=== PATIENT | male | born 1930 | race Caucasian/White ===

== ENCOUNTER → 2016-08-10 | Outpatient (CLI) | payer MEDICARE, MEDICAID ==
[~2016-08-10] MED LIST: AVOD0.5C OR; BABY81CH OR; CALCTAB22 OR; DIOV160T5 OR; FISH1000 OR; GLUC1000 OR; HYDR25TA6 OR; ISOS30TA4 OR; KLOR10TA OR; MULTIVIT PO; SIMV20TA2 OR; SULF50TA OR; VIT D 2000 PO; VITA100T OR; VITA500T OR; cholestyramine PO
[2016-08-10 10:26] LABS: ALBUMIN/GLOBULIN RATIO 1.33 (1.00-1.93); ALKALINE PHOSPHATASE 67 U/L (45-117); ALT/SGPT 22 U/L (12-78); ANION GAP 7 MEQ/L (8-16); AST/SGOT 22 U/L (15-37); BILIRUBIN,TOTAL 0.7 MG/DL (0.2-1.0); BLOOD UREA NITROGEN 15 MG/DL (7-18); CALCIUM LEVEL 8.9 MG/DL (8.8-10.2); CARBON DIOXIDE LEVEL 33 MEQ/L (21-32); CHLORIDE LEVEL 102 MEQ/L (98-107); CREATININE FOR GFR 1.06 MG/DL (0.70-1.30); GLOMERULAR FILTRATION RATE > 60.0 (>35); GLUCOSE, FASTING 149 MG/DL (83-110); POTASSIUM SERUM 4.1 MEQ/L (3.5-5.1); SODIUM LEVEL 142 MEQ/L (136-145)
[2016-08-10 10:29] LABS: VITAMIN B12 LEVEL 1134 PG/ML (247-911)
== END ==
LOC: M LAB 09:30
PROVIDERS: ATTEND Nurse Practitioner Family
DX: E11.9 Type 2 diabetes mellitus without complications (principal); E55.9 Vitamin D deficiency, unspecified; D51.8 Other vitamin B12 deficiency anemias

== ENCOUNTER → 2016-11-21 | Outpatient (CLI) | payer MEDICARE, MEDICAID ==
[2016-11-21 07:29] LABS: ANION GAP 8 MEQ/L (8-16); BLOOD UREA NITROGEN 22 MG/DL (7-18); CARBON DIOXIDE LEVEL 32 MEQ/L (21-32); CHLORIDE LEVEL 100 MEQ/L (98-107); CREATININE FOR GFR 1.13 MG/DL (0.70-1.30); GLOMERULAR FILTRATION RATE > 60.0 (>35); GLUCOSE, FASTING 193 MG/DL (83-110); POTASSIUM SERUM 3.6 MEQ/L (3.5-5.1); SODIUM LEVEL 140 MEQ/L (136-145)
== END ==
LOC: M LAB 06:10
PROVIDERS: ATTEND Nurse Practitioner Family
DX: E11.9 Type 2 diabetes mellitus without complications (principal)

== ENCOUNTER → 2017-03-07 | Outpatient (CLI) | payer MEDICARE, MEDICAID ==
[2017-03-07 07:44] LABS: BASO % 0.6 % (0.0-1.0); EOS # 0.1 K/mm3 (0.0-0.50); EOS % 0.8 % (0.0-3.0); LYMPH # 1.9 K/mm3 (1.5-4.5); LYMPH % 25.2 % (24.0-44.0); MEAN CORPUSCULAR HEMOGLOBIN 32.7 pg (27.0-33.0); MEAN CORPUSCULAR HGB CONC 34.9 g/dl (32.0-36.5); MEAN CORPUSCULAR VOLUME 93.5 fl (80.0-96.0); MONO # 0.6 K/mm3 (0.0-0.8); MONO % 8.4 % (0.0-5.0); NEUTROPHILS # 4.3 K/mm3 (1.8-7.7); NEUTROPHILS % 62.9 % (36.0-66.0); RED CELL DISTRIBUTION WIDTH 13.3 % (11.5-14.5); WHITE BLOOD COUNT 6.8 K/mm3 (4.0-10.0)
[2017-03-07 08:32] LABS: ALBUMIN 4.1 GM/DL (3.2-5.2); ALBUMIN/GLOBULIN RATIO 1.41 (1.00-1.93); ALKALINE PHOSPHATASE 66 U/L (45-117); ALT/SGPT 26 U/L (12-78); ANION GAP 10 MEQ/L (8-16); AST/SGOT 23 U/L (15-37); BILIRUBIN,TOTAL 1.1 MG/DL (0.2-1.0); BLOOD UREA NITROGEN 24 MG/DL (7-18); CALCIUM LEVEL 9.2 MG/DL (8.8-10.2); CARBON DIOXIDE LEVEL 29 MEQ/L (21-32); CHLORIDE LEVEL 104 MEQ/L (98-107); CHOLESTEROL LEVEL 135 MG/DL (<200); CREATININE FOR GFR 1.08 MG/DL (0.70-1.30); GLOMERULAR FILTRATION RATE > 60.0 (>35); GLUCOSE, FASTING 207 MG/DL (83-110); SODIUM LEVEL 143 MEQ/L (136-145); TRIGLYCERIDES LEVEL 200 MG/DL (<150)
== END ==
LOC: M LAB 06:50
PROVIDERS: ATTEND Physician Assistant Medical
DX: E11.9 Type 2 diabetes mellitus without complications (principal)

== ENCOUNTER → 2017-05-08 | Outpatient (CLI) | payer MEDICARE, MEDICAID ==
[2017-05-08 06:54] LABS: BASO % 0.3 % (0.0-1.0); EOS # 0.1 10^3/uL (0.0-0.50); EOS % 0.6 % (0.0-3.0); IMMATURE GRANULOCYTE % 0.6 % (0-0); LYMPH # 2.9 10^3/uL (1.5-4.5); LYMPH % 31.7 % (24.0-44.0); MEAN CORPUSCULAR HEMOGLOBIN 32.4 pg (27.0-33.0); MEAN CORPUSCULAR HGB CONC 34.5 g/dl (32.0-36.5); MONO # 0.9 10^3/uL (0.0-0.8); MONO % 9.4 % (0.0-5.0); NEUTROPHILS # 5.2 10^3/uL (1.8-7.7); NEUTROPHILS % 57.4 % (36.0-66.0); PLATELET COUNT, AUTOMATED 147 10^3/uL (150-450); RED CELL DISTRIBUTION WIDTH 12.9 % (11.5-14.5); WHITE BLOOD COUNT 9.1 10^3/uL (4.0-10.0)
[2017-05-08 07:25] LABS: ALBUMIN 4.4 GM/DL (3.2-5.2); ALBUMIN/GLOBULIN RATIO 1.57 (1.00-1.93); ALKALINE PHOSPHATASE 68 U/L (45-117); ALT/SGPT 29 U/L (12-78); ANION GAP 7 MEQ/L (8-16); AST/SGOT 28 U/L (7-37); BILIRUBIN,TOTAL 1.3 MG/DL (0.2-1.0); BLOOD UREA NITROGEN 19 MG/DL (7-18); CARBON DIOXIDE LEVEL 32 MEQ/L (21-32); CHLORIDE LEVEL 101 MEQ/L (98-107); CHOLESTEROL LEVEL 122 MG/DL (<200); CREATININE FOR GFR 1.07 MG/DL (0.70-1.30); GLOMERULAR FILTRATION RATE > 60.0 (>35); GLUCOSE, FASTING 186 MG/DL (83-110); POTASSIUM SERUM 3.4 MEQ/L (3.5-5.1); SODIUM LEVEL 140 MEQ/L (136-145); TOTAL PROTEIN 7.2 GM/DL (6.4-8.2); TRIGLYCERIDES LEVEL 186 MG/DL (<150)
== END ==
LOC: M LAB 06:15
PROVIDERS: ATTEND Physician Assistant Medical
DX: E11.9 Type 2 diabetes mellitus without complications (principal); Z79.899 Other long term (current) drug therapy

== ENCOUNTER → 2017-06-19 | Outpatient (CLI) | payer MEDICARE, MEDICAID ==
--- NOTE | 2017-06-19 12:02 | REP ---
MR BRAIN WITHOUT CONTRAST: HISTORY: Dizziness. Areas of increased signal intensity on T2-weighted images are present in the periventricular and subcortical white matter. This represents small vessel ischemic disease. There is no intraparenchymal hemorrhage, infarct, mass or midline shift. The ventricular system and cortical sulci are dilated consistent with moderate volume loss. There is no extracerebral collection. Minimal mucosal thickening is present in the right mastoid air cells. The sinuses are clear. 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 There is minimal mass effect on the upper cervical spinal cord and lower medulla. IMPRESSION: 1. Small vessel ischemic disease. 2. Moderate volume loss. 3. Basilar invagination. Signed by Osei Wallis MD 06/19/2017 12:09 P
== END ==
LOC: M RAD 09:32
PROVIDERS: ATTEND Physician Assistant Medical
DX: R42 Dizziness and giddiness (principal); I67.82 Cerebral ischemia; G31.9 Degenerative disease of nervous system, unspecified

== ENCOUNTER → 2017-08-15 | Outpatient (REF) | payer MEDICARE, MEDICAID ==
[2017-08-15 12:47] LABS: BASO % 0.4 % (0.0-1.0); EOS % 0.5 % (0.0-3.0); HEMATOCRIT 42.9 % (42.0-52.0); HEMOGLOBIN 14.6 g/dl (14.0-18.0); IMMATURE GRANULOCYTE % 0.4 % (0-3.0); LYMPH # 2.3 10^3/uL (1.5-4.5); LYMPH % 30.5 % (24.0-44.0); MEAN CORPUSCULAR HEMOGLOBIN 30.6 pg (27.0-33.0); MEAN CORPUSCULAR VOLUME 89.9 fl (80.0-96.0); MONO # 0.7 10^3/uL (0.0-0.8); MONO % 9.7 % (0.0-5.0); NEUTROPHILS # 4.3 10^3/uL (1.8-7.7); NEUTROPHILS % 58.5 % (36.0-66.0); PLATELET COUNT, AUTOMATED 135 10^3/uL (150-450); RED BLOOD COUNT 4.77 10^6/uL (4.30-6.10); RED CELL DISTRIBUTION WIDTH 12.7 % (11.5-14.5); WHITE BLOOD COUNT 7.4 10^3/uL (4.0-10.0)
[2017-08-15 13:05] LABS: TOTAL 25(OH) VITAMIN D 32.3 NG/ML (30.0-100.0)
[2017-08-15 13:15] LABS: ESTIMATED AVERAGE GLUCOSE 151 MG/DL (60-110); HEMOGLOBIN A1c 6.9 %
[2017-08-15 13:16] LABS: ALBUMIN 4.5 GM/DL (3.2-5.2); ALKALINE PHOSPHATASE 61 U/L (45-117); ALT/SGPT 25 U/L (12-78); ANION GAP 8 MEQ/L (8-16); AST/SGOT 19 U/L (7-37); BILIRUBIN,TOTAL 0.9 MG/DL (0.2-1.0); BLOOD UREA NITROGEN 22 MG/DL (7-18); CALCIUM LEVEL 9.6 MG/DL (8.8-10.2); CARBON DIOXIDE LEVEL 32 MEQ/L (21-32); CHLORIDE LEVEL 101 MEQ/L (98-107); CHOLESTEROL LEVEL 118 MG/DL (<200); CHOLESTEROL RISK RATIO 2.145 (<5); CREATININE FOR GFR 1.05 MG/DL (0.70-1.30); GLOMERULAR FILTRATION RATE > 60.0 (>35); GLUCOSE, FASTING 167 MG/DL (70-100); HDL CHOLESTEROL 55 MG/DL (>40); LDL CHOLESTEROL 22.4 MG/DL (<100); NON-HDL-C 63 MG/DL; POTASSIUM SERUM 4.1 MEQ/L (3.5-5.1); SODIUM LEVEL 141 MEQ/L (136-145); TOTAL PROTEIN 7.5 GM/DL (6.4-8.2); TRIGLYCERIDES LEVEL 203 MG/DL (<150)
== END ==
LOC: M LAB REF 12:10
DX: I10 Essential (primary) hypertension (principal); E55.9 Vitamin D deficiency, unspecified; I48.91 Unspecified atrial fibrillation; D51.8 Other vitamin B12 deficiency anemias; Z79.899 Other long term (current) drug therapy
CPT/HCPCS: 80162

== ENCOUNTER → 2017-12-05 | Outpatient (REF) | payer MEDICARE, MEDICAID ==
[2017-12-05 13:02] LABS: MAU/CREAT RATIO 135.9 MCG/MG (0.0-30.0)
[2017-12-05 13:05] LABS: ESTIMATED AVERAGE GLUCOSE 166 MG/DL (60-110); HEMOGLOBIN A1c 7.4 %
== END ==
LOC: M LAB REF 11:40
DX: E11.9 Type 2 diabetes mellitus without complications (principal)
CPT/HCPCS: 83036

== ENCOUNTER → 2018-01-29 | Outpatient (REF) | payer MEDICARE, MEDICAID ==
[2018-01-29 14:02] LABS: ESTIMATED AVERAGE GLUCOSE 160 MG/DL (60-110); HEMOGLOBIN A1c 7.2 %
== END ==
LOC: M LAB REF 13:34
DX: E11.9 Type 2 diabetes mellitus without complications (principal)
CPT/HCPCS: 83036

== ENCOUNTER → 2018-05-01 | Outpatient (REF) | payer MEDICARE, MEDICAID ==
[2018-05-01 14:16] LABS: ALBUMIN 4.2 GM/DL (3.2-5.2); ALBUMIN/GLOBULIN RATIO 1.45 (1.00-1.93); ALKALINE PHOSPHATASE 65 U/L (45-117); ALT/SGPT 22 U/L (12-78); ANION GAP 10 MEQ/L (8-16); AST/SGOT 19 U/L (7-37); BILIRUBIN,TOTAL 0.8 MG/DL (0.2-1.0); BLOOD UREA NITROGEN 21 MG/DL (7-18); CALCIUM LEVEL 9.5 MG/DL (8.8-10.2); CARBON DIOXIDE LEVEL 29 MEQ/L (21-32); CHLORIDE LEVEL 99 MEQ/L (98-107); CREATININE FOR GFR 1.03 MG/DL (0.70-1.30); GLOMERULAR FILTRATION RATE > 60.0 (>35); GLUCOSE, FASTING 263 MG/DL (70-100); POTASSIUM SERUM 4.2 MEQ/L (3.5-5.1); SODIUM LEVEL 138 MEQ/L (136-145); TOTAL PROTEIN 7.1 GM/DL (6.4-8.2)
[2018-05-01 14:24] LABS: VITAMIN B12 LEVEL 378 PG/ML (247-911)
[2018-05-01 18:33] LABS: ESTIMATED AVERAGE GLUCOSE 171 MG/DL (60-110); HEMOGLOBIN A1c 7.6 %
== END ==
LOC: M LAB REF 11:53
DX: E11.9 Type 2 diabetes mellitus without complications (principal); D51.8 Other vitamin B12 deficiency anemias
CPT/HCPCS: 82607

== ENCOUNTER → 2018-08-12 | Outpatient (REF) | payer MEDICARE, MEDICAID ==
[2018-08-12 13:07] LABS: BASO % 0.5 % (0.0-1.0); EOS % 0.2 % (0.0-3.0); HEMATOCRIT 41.7 % (42.0-52.0); HEMOGLOBIN 14.3 g/dl (13.5-17.5); LYMPH # 1.6 10^3/uL (1.5-4.5); LYMPH % 19.3 % (24.0-44.0); MEAN CORPUSCULAR HEMOGLOBIN 31.6 pg (27.0-33.0); MEAN CORPUSCULAR HGB CONC 34.3 g/dl (32.0-36.5); MEAN CORPUSCULAR VOLUME 92.1 fl (80.0-96.0); MONO # 0.8 10^3/uL (0.0-0.8); MONO % 9.6 % (0.0-5.0); NEUTROPHILS # 5.7 10^3/uL (1.8-7.7); NEUTROPHILS % 69.7 % (36.0-66.0); PLATELET COUNT, AUTOMATED 134 10^3/uL (150-450); RED BLOOD COUNT 4.53 10^6/uL (4.30-6.10); WHITE BLOOD COUNT 8.1 10^3/uL (4.0-10.0)
[2018-08-12 13:46] LABS: ALBUMIN 4.1 GM/DL (3.2-5.2); ALT/SGPT 25 U/L (12-78); BILIRUBIN,TOTAL 0.7 MG/DL (0.2-1.0); BLOOD UREA NITROGEN 17 MG/DL (7-18); CALCIUM LEVEL 8.9 MG/DL (8.8-10.2); CARBON DIOXIDE LEVEL 26 MEQ/L (21-32); CHLORIDE LEVEL 100 MEQ/L (98-107); CREATININE FOR GFR 1.07 MG/DL (0.70-1.30); GLOMERULAR FILTRATION RATE > 60.0 (>35); GLUCOSE, FASTING 287 MG/DL (70-100); POTASSIUM SERUM 3.7 MEQ/L (3.5-5.1); SODIUM LEVEL 138 MEQ/L (136-145); TOTAL PROTEIN 7.2 GM/DL (6.4-8.2)
[2018-08-12 14:02] LABS: HEMOGLOBIN A1c 8.8 %
== END ==
LOC: M LAB REF 12:05
PROVIDERS: ATTEND Nurse Practitioner Family
DX: I10 Essential (primary) hypertension (principal); E11.9 Type 2 diabetes mellitus without complications

== ENCOUNTER → 2018-11-24 | Outpatient (REF) | payer MEDICARE, MEDICAID ==
[2018-11-24 20:02] LABS: BASO % 0.5 % (0.0-1.0); EOS % 0.3 % (0.0-3.0); HEMOGLOBIN 12.3 g/dl (13.5-17.5); LYMPH # 0.9 10^3/uL (1.5-4.5); LYMPH % 10.9 % (24.0-44.0); MEAN CORPUSCULAR HEMOGLOBIN 30.7 pg (27.0-33.0); MEAN CORPUSCULAR HGB CONC 33.2 g/dl (32.0-36.5); MEAN CORPUSCULAR VOLUME 92.3 fl (80.0-96.0); MONO # 0.8 10^3/uL (0.0-0.8); MONO % 9.4 % (0.0-5.0); NEUTROPHILS # 6.2 10^3/uL (1.8-7.7); NEUTROPHILS % 77.9 % (36.0-66.0); PLATELET COUNT, AUTOMATED 159 10^3/uL (150-450); RED BLOOD COUNT 4.01 10^6/uL (4.30-6.10)
[2018-11-24 20:25] LABS: ALBUMIN 3.6 GM/DL (3.2-5.2); ALT/SGPT 25 U/L (12-78); BILIRUBIN,TOTAL 0.6 MG/DL (0.2-1.0); BLOOD UREA NITROGEN 15 MG/DL (7-18); CALCIUM LEVEL 8.4 MG/DL (8.8-10.2); CARBON DIOXIDE LEVEL 28 MEQ/L (21-32); CHLORIDE LEVEL 99 MEQ/L (98-107); CHOLESTEROL LEVEL 125 MG/DL (<200); CHOLESTEROL RISK RATIO 2.659 (<5); GLOMERULAR FILTRATION RATE > 60.0 (>35); GLUCOSE, FASTING 252 MG/DL (70-100); HDL CHOLESTEROL 47 MG/DL (>40); LDL CHOLESTEROL 37 MG/DL (<100); NON-HDL-C 78 MG/DL; SODIUM LEVEL 139 MEQ/L (136-145); TOTAL PROTEIN 6.8 GM/DL (6.4-8.2); TRIGLYCERIDES LEVEL 207 MG/DL (<150)
[2018-11-24 20:30] LABS: HEMOGLOBIN A1c 7.5 %
== END ==
LOC: M LAB REF 19:08
PROVIDERS: ATTEND Nurse Practitioner Family
DX: R07.89 Other chest pain (principal); Z13.9 Encounter for screening, unspecified; E11.9 Type 2 diabetes mellitus without complications

== ENCOUNTER 2018-12-01 04:20 | Inpatient (IN) | payer MEDICARE, MEDICAID ==
[2018-12-01] VITALS (18 sets, daily range): BP systolic 95–195; BP diastolic 60–117; O2SAT 95
[~2018-12-01] VITALS: Ht 165.1 cm; Wt 68.7 kg
[2018-12-01] MEDS ORDERED: METOPROLOL 5 MG/5 ML VIAL As Ordered ONE ×2 (04:28→04:36)
[2018-12-01] MEDS ORDERED: DIGOXIN INJ 0.5 MG/2 ML AMP (J1160) As Ordered ONE (04:29)
[2018-12-01 04:41] LABS: VENOUS HCO3 16.9 MEQ/L (23.0-27.0); VENOUS PARTIAL PRESSURE O2 30.2 mmHg (30.0-50.0); VENOUS PH 7.192 UNITS (7.330-7.430); VENOUS STANDARD HCO3 14.8 MEQ/L; VENOUS TOTAL CO2 18.3 MEQ/L (24.0-28.0)
[2018-12-01] MEDS ORDERED: FUROSEMIDE 100 MG/10 ML VIAL (J1940) IV ONE (04:45)
[2018-12-01 04:55] LABS: BASO % 0.3 % (0.0-1.0); HEMATOCRIT 42.6 % (42.0-52.0); HEMOGLOBIN 13.6 g/dl (13.5-17.5); LYMPH % 16.5 % (24.0-44.0); MEAN CORPUSCULAR HEMOGLOBIN 30.9 pg (27.0-33.0); MEAN CORPUSCULAR HGB CONC 31.9 g/dl (32.0-36.5); MEAN CORPUSCULAR VOLUME 96.8 fl (80.0-96.0); MONO % 7.9 % (0.0-5.0); NEUTROPHILS # 9.1 10^3/uL (1.8-7.7); NEUTROPHILS % 74.6 % (36.0-66.0); PLATELET COUNT, AUTOMATED 292 10^3/uL (150-450); WHITE BLOOD COUNT 12.2 10^3/uL (4.0-10.0)
[2018-12-01 04:58] LABS: INR 1.37; PROTHROMBIN TIME 17.1 SECONDS (12.1-14.4)
[2018-12-01] MEDS ORDERED: JANU100T PO (04:58)
[2018-12-01] MEDS ORDERED: SULF1TAB30 PO (04:58)
[2018-12-01] MEDS ORDERED: DIGO0.12 PO (04:58)
[2018-12-01] MEDS ORDERED: LOPE1CAP5 PO (04:58)
[2018-12-01] MEDS ORDERED: DILT1CAP46 PO (04:58)
[2018-12-01] MEDS ORDERED: FINA5TAB2 PO (04:58)
[2018-12-01] MEDS ORDERED: PROAAER10 INH (04:58)
[2018-12-01] MEDS ORDERED: SIMV20TA2 PO (04:58)
[2018-12-01] MEDS ORDERED: BREO1INH INH (04:58)
[2018-12-01] MEDS ORDERED: METF10004 PO (04:58)
[2018-12-01] MEDS ORDERED: LISI40TA PO (04:58)
[2018-12-01] MEDS ORDERED: ELIQ5TAB PO (04:58)
[2018-12-01] MEDS ORDERED: POTA20TA6 PO (04:58)
[2018-12-01] MEDS ORDERED: INDA125TA PO (04:58)
[2018-12-01 05:00] LABS: ALBUMIN 3.8 GM/DL (3.2-5.2); BILIRUBIN,DIRECT 0.3 MG/DL (0.0-0.2); CK-MB VALUE MASS 4.6 NG/ML (<3.6); CREATININE FOR GFR 1.53 MG/DL (0.70-1.30); MB/CK RELATIVE INDEX 3.74 (< OR =4); POTASSIUM SERUM 4.1 MEQ/L (3.5-5.1); TOTAL PROTEIN 7.3 GM/DL (6.4-8.2); TROPONIN I 0.59 NG/ML (< 0.10)
[2018-12-01] MEDS ORDERED: PATIENT COMMENT (05:00)
--- NOTE | 2018-12-01 05:24 | HPEPDOC ---
[facility] Medical History & Physical Date of Admission Dec 01, 2018 Date of Service: Dec 01, 2018 History and Physical CHIEF COMPLAINT: SOB HISTORY OF PRESENT ILLNESS: Patient is an 88-year-old male with past medical history of ?CHF, Afib on Eliquis, HTN, Crohn's disease, HLD, BPH, DM presented to the ER with complaints of worsening SOB. Stated symptoms started about a week ago and has been getting worse and also noticed that his legs are more swollen since yesterday. He denies any cough, chest pain, fever, chills or any other symptoms apart from dyspnea on exertion. Noted to be hypoxic in ER requiring NRB mask for O2 support. Also was in Afib w/ RVR on presentation that had now resolved. 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 PAST MEDICAL HISTORY: Refer to [facility] PAST SURGICAL HISTORY: Right colectomy with terminal ileum resection in Appendectomy Cholecystectomy SOCIAL HISTORY: Denies tobacco, alcohol or illicit drug use. FAMILY HISTORY: None reported ALLERGIES: Please see below. REVIEW OF SYSTEMS: 10 point review of system negative except as stated in [facility] HOME MEDICATIONS: Please see below. PHYSICAL EXAMINATION: General: Mild respiratory distress, speak in complete sentences but very difficult to comprehend. Eyes: Normal sclera, EOMI, JOSE LUIS HENT: Atraumatic, neck supple, moist mucous membranes Cardiovascular: Normal rate. No murmurs appreciated. Pulmonary: Decrease breath sounds b/l, more on the R. mild bi basilar crackles. GI: Soft, nontender, nondistended Skin: Warm and dry Neuro: CN grossly intact. No focal deficits. Strengths equal b/l. Psych: oriented x 3 LABORATORY DATA: See below. IMAGING: CXR- b/l congestion worse on R. according to my read. F/u official report. MICROBIOLOGY: Please see below. ASSESSMENT AND PLAN: 1. Suspected CHF? - No documented ECHO noted in the past, although patient does report CHF and follows with 2 electronics instructor. - Obtain ECHO. - c/w Diuresis. Daily weights. I/O. - O2 support for hypoxia. - Clinically improved after lasix and oxygen support. 2. Lactic acidosis - No clear evidence of infection. No symptoms of PNA. - Likely 2/2 hypoperfusion from poor cardiac function. - f/u blood cultures. - Start Abx if patient becomes febrile or show signs of infection otherwise. 3. HTN - Resume home meds. 4. Crohn's disease 5. HLD - resume home meds 6. Afib - Currently rate controlled. - resume home medication. On Eliquis 5BID, would consider reducing dose given advance age. 7. Elevated troponin - Likely demand. patient has no chest pain. - Can trend. DVT ppx: Eliquis Vital Signs Vital Signs Date Time Temp Pulse Resp B/P (MAP) Pulse Ox O2 Delivery O2 Flow Rate FiO2 12/01/18 05:18 98.5 108 44 131/73 (92) 95 Non-Rebreather 15.0 Laboratory Data Labs 24H Laboratory Tests 2 12/01/18 04:28: Immature Granulocyte % (Auto) 0.7, White Blood Count 12.2H, Red Blood Count 4.40, Hemoglobin 13.6, Hematocrit 42.6, Mean Corpuscular Volume 96.8H, Mean Corpuscular Hemoglobin 30.9, Mean Corpuscular Hemoglobin Concent 31.9L, Red Cell Distribution Width 14.0, Platelet Count 292, Neutrophils (%) (Auto) 74.6H, Lymphocytes (%) (Auto) 16.5L, Monocytes (%) (Auto) 7.9H, Eosinophils (%) (Auto) 0.0, Basophils (%) (Auto) 0.3, Neutrophils # (Auto) 9.1H, Lymphocytes # (Auto) 2.0, Monocytes # (Auto) 1.0H, Eosinophils # (Auto) 0.0, Basophils # (Auto) 0.0, Nucleated Red Blood Cells % (auto) 0.0, Prothrombin Time 17.1H, Prothromb Time International Ratio 1.37, Blood Gas Bicarbonate Standard 14.8, Venous Blood pH 7.192L, Venous Blood Partial Pressure CO2 45.0, Venous Blood Partial Pressure O2 30.2, Venous Blood Total Carbon Dioxide 18.3L, Venous Blood HCO3 16.9L, Venous Blood Oxygen Saturation 39.0L, Venous Blood Base Excess -11.0L, Anion Gap 17H, Glomerular Filtration Rate 46.0, Lactic Acid Level 9.4*H, Calcium Level 9.0, Aspartate Amino Transf (AST/SGOT) 32, Alanine Aminotransferase (ALT/SGPT) 27, Alkaline Phosphatase 63, Total Bilirubin 1.0, Direct Bilirubin 0.3H, Total Creatine Kinase 123, Creatine Kinase MB 4.6H, Creatine Kinase MB Relative Index 3.74, Troponin I 0.59H, DB-Zol-D-Type Natriuretic Peptide 5883H, Total Protein 7.3, Albumin 3.8, Albumin/Globulin Ratio 1.09, Lipase 88 CBC/BMP Laboratory Tests 12/01/18 04:28 Red Blood Count 4.40, Mean Corpuscular Volume 96.8 H, Mean Corpuscular Hemoglobin 30.9, Mean Corpuscular Hemoglobin Concent 31.9 L, Red Cell Distribution Width 14.0, Neutrophils (%) (Auto) 74.6 H, Lymphocytes (%) (Auto) 16.5 L, Monocytes (%) (Auto) 7.9 H, Eosinophils (%) (Auto) 0.0, Basophils (%) (Auto) 0.3, Neutrophils # (Auto) 9.1 H, Lymphocytes # (Auto) 2.0, Monocytes # (Auto) 1.0 H, Eosinophils # (Auto) 0.0, Basophils # (Auto) 0.0 Microbiology Microbiology 12/01/18 Blood Culture, Received Pending 12/01/18 Blood Culture, Received Pending Home Medications Scheduled Apixaban (Eliquis) 5 Mg Tablet, 5 MG PO BID Digoxin (Digoxin) 125 Mcg Tablet, 125 MCG PO DAILY Diltiazem Hcl (Diltiazem 24Hr ER) 360 Mg Cap.er.24h, 360 MG PO DAILY Finasteride (Finasteride) 5 Mg Tablet, 5 MG PO DAILY Fluticasone/Vilanterol (Breo Ellipta 100-25 Mcg INH) 1 Each Blst.w.dev, 1 PUFF INH DAILY Indapamide (Indapamide) 1.25 Mg Tablet, 1.25 MG PO DAILY Lisinopril (Lisinopril) 40 Mg Tablet, 40 MG PO DAILY Loperamide HCl (Loperamide) 2 Mg Capsule, 2 MG PO BID Metformin HCl (Metformin HCl) 1,000 Mg Tablet, 1,000 MG PO BID Potassium Chloride (Potassium Chloride) 20 Meq Tab.er.prt, 20 MEQ PO DAILY Simvastatin (Simvastatin) 20 Mg Tablet, 20 MG PO QHS Sitagliptin Phosphate (Januvia) 100 Mg Tablet, 100 MG PO DAILY Sulfasalazine (Sulfasalazine) 500 Mg Tablet, 500 MG PO QID Scheduled PRN Albuterol Sulfate (Proair Hfa) 8.5 Gm Hfa.aer.ad, 2 PUFF INH Q4H PRN for SOB/WHEEZING Miscellaneous Medications [Patient Comment] PRELIMINARY MED LIST OBTAINED FROM EXT. MED HISTORY. WILL DISCUSS WITH PT WHEN BREATHING IMPROVES Allergies Coded Allergies: No Known Allergies (Verified , 03/05/10) A-FIB/CHADSVASC A-FIB History Current/History of A-Fib/PAF?: Yes Current PO Anticoag Therapy: Yes LYNNE ANGELA MD Dec 01, 2018 05:24
[2018-12-01] MEDS ORDERED: METOPROLOL 5 MG/5 ML VIAL IV STA ×3 (05:30)
[2018-12-01] MEDS ORDERED: DIGOXIN INJ 0.5 MG/2 ML AMP (J1160) IV STA (05:30)
[2018-12-01] MEDS ORDERED: ACETAMINOPHEN TAB 650MG DOSE (2X325MG) PO PRN (05:45)
[2018-12-01] MEDS ORDERED: VITAD1000T PO (06:15)
[2018-12-01] MEDS ORDERED: CALC500T38 PO (06:15)
[2018-12-01] MEDS ORDERED: MULT-40 PO (06:15)
[2018-12-01] MEDS ORDERED: GLUCAGON FOR INJ 1 MG VIAL (J1610) SC PRN (08:15)
[2018-12-01] MEDS ORDERED: DEXTROSE 50% 50 ML SYRINGE IV PRN (08:15)
[2018-12-01] MEDS ORDERED: GLUCOSE 4 GM CHEW TABLET PO PRN (08:15)
--- NOTE | 2018-12-01 08:34 | IPNPDOC ---
Text Note Date of Service The patient was seen on 12/01/18. NOTE [id number] critical care time S: called to floor because patient in respiratory distress. He was admitted 3-4 hours ago with CHF, elevated troponin. He states no CP, +RIOS, +SOB,+orthpnea and edema- worsening over 4-5 days. He was [id number] IV lasix in ED with 200cc urine output (declines bella). Neice present. patient is a DNR/DNI. he is present on ventimask. O: Vitals as below ABG/labs reviewed General: severe respiratory distress, intercostal and accessory abdomen muscles to breath HEENT:+JVD Heart - irreg/irreg - rate controlled Lung - diminished breathsounds, rales scattered Ext 2+ pitting edema Random BS 410 Current Medications Acetaminophen (Tylenol Tab) 650 mg Q4H PRN PO PAIN OR FEVER; Start 12/01/18 at 05:45 Apixaban (Eliquis) 2.5 mg BID PO ; Start 12/01/18 at 21:00 Digoxin (Lanoxin) 0.0625 mg DAILY PO ; Start 12/02/18 at 09:00 Digoxin (Lanoxin) 0.25 mg STAT STAT IV Last administered on 12/01/18at 04:35; Start 12/01/18 at 05:30; Stop 12/01/18 at 05:32; Status DC Diltiazem HCl (Cardizem Cd) 360 mg DAILY PO ; Start 12/02/18 at 09:00 Finasteride (Proscar) 5 mg DAILY PO ; Start 12/02/18 at 09:00 Furosemide (LASIX injection) 60 mg Q8H IV ; Start 12/01/18 at 12:00; Stop 12/01/18 at 12:00; Status DC Furosemide 250 mg/ Dextrose 250 ml @ 7.33 mls/hr Q24H IV ; Start 12/01/18 at 08:15; Status UNV Glucagon (Glucagon) 1 mg ASDIRECTED PRN SC SEE LABEL COMMENTS; Start 12/01/18 at 08:15 Glucose (Glucose) 16 GM ASDIRECTED PRN PO SEE LABEL COMMENTS; Start 12/01/18 at 08:15 Home Med (Med Rec Complete!) ASDIRECTED XX ; Start 12/01/18 at 06:30; Stop 12/01/18 at 06:30; Status DC Indapamide (Lozol) 1.25 mg DAILY PO ; Start 12/02/18 at 09:00 Insulin Human Lispro (HumaLOG INSULIN) SEE PROTOCOL TABLE AC SC ; Start 12/01/18 at 07:30 Insulin Human Lispro (HumaLOG INSULIN) SEE PROTOCOL TABLE QHS SC ; Start 12/01/18 at 21:00 Lisinopril (Prinivil) 40 mg DAILY PO ; Start 12/02/18 at 09:00 Metoprolol Tartrate (Lopressor) 2.5 mg STAT STAT IV Last administered on 12/01/18at 05:18; Start 12/01/18 at 05:30; Stop 12/01/18 at 05:33; Status DC Metoprolol Tartrate (Lopressor) 5 mg STAT STAT IV Last administered on 12/01/18at 04:30; Start 12/01/18 at 05:30; Stop 12/01/18 at 05:32; Status DC Metoprolol Tartrate (Lopressor) 5 mg STAT STAT IV Last administered on 12/01/18at 04:36; Start 12/01/18 at 05:30; Stop 12/01/18 at 05:32; Status DC Potassium Chloride (Micro-K Extencaps) 20 meq DAILY PO ; Start 12/02/18 at 09:00 Simvastatin (Zocor) 20 mg QHS PO ; Start 12/01/18 at 21:00 Sulfasalazine (Azulfidine Entabs) 500 mg QID PO ; Start 12/01/18 at 13:00 A/P: 88 yo diabetic male with Acute hypoxic respiratory failure due to CHF, lactic acidosis, BRANDEE, elevated troponin (demand ischemia vs NSTEMI) and rate controlled Afib. Bipap (05/29), lasix drip (IV bumex not available), check potassium at 1000, ECHO PENDING, cardiology consulted. electrolyte replacement. SSI repeat ABG in 1 hour. Lasix drip is in D5 and may need additional insulin drip or high dose sliding scale. Hold metformen. Lactic acidosis may also be from metformen, renal disease and CHF. consider nephrology consult Critical care time 30 minutes VS,Fishbone, I+O VS, Fishbone, I+O Laboratory Tests 12/01/18 04:28 Red Blood Count 4.40, Mean Corpuscular Volume 96.8 H, Mean Corpuscular Hemoglobin 30.9, Mean Corpuscular Hemoglobin Concent 31.9 L, Red Cell Distribution Width 14.0, Neutrophils (%) (Auto) 74.6 H, Lymphocytes (%) (Auto) 16.5 L, Monocytes (%) (Auto) 7.9 H, Eosinophils (%) (Auto) 0.0, Basophils (%) (Auto) 0.3, Neutrophils # (Auto) 9.1 H, Lymphocytes # (Auto) 2.0, Monocytes # (Auto) 1.0 H, Eosinophils # (Auto) 0.0, Basophils # (Auto) 0.0 Vital Signs Date Time Temp Pulse Resp B/P (MAP) Pulse Ox O2 Delivery O2 Flow Rate FiO2 12/01/18 06:43 96.4 101 26 138/66 (90) 97 50 12/01/18 06:10 Venturi Mask 15.0 DAYRON MARQUES DO Dec 01, 2018 08:34
[2018-12-01] MEDS: HumaLOG INSULIN (NovoLOG) PER UNIT SC SCH ×4 (08:49→20:54)
[2018-12-01] MEDS ORDERED: FUROSEMIDE injection 250 MG in D5W 225 ML IV SCH (09:00)
[2018-12-01] MEDS ORDERED: MORPHINE 4 MG/ML 1ML VIAL/SYRINGE (J2270) IV ONE (09:00)
[2018-12-01 09:41] LABS: ABG BASE EXCESS -1.9 (-2.0-2.0); ABG HCO3 20.6 MEQ/L (22.0-26.0); ABG O2 SATURATION 96.6 % (95.0-99.0); ABG PARTIAL PRESSURE CO2 28.6 mmHg (35.0-45.0); ABG PARTIAL PRESSURE O2 101.7 mmHg (75.0-100.0); ABG STANDARD HCO3 22.9 MEQ/L (22.0-26.0); ABG TOTAL CO2 21.5 MEQ/L (23.0-31.0); ABG pH (ARTERIAL) 7.475 UNITS (7.350-7.450)
[2018-12-01 10:41] LABS: CALCIUM LEVEL 8.7 MG/DL (8.8-10.2); CREATININE FOR GFR 1.49 MG/DL (0.70-1.30); GLOMERULAR FILTRATION RATE 47.4 (>35); POTASSIUM SERUM 3.4 MEQ/L (3.5-5.1); TROPONIN I 1.08 NG/ML (< 0.10)
[2018-12-01] MEDS ORDERED: FUROSEMIDE 100 MG/10 ML VIAL (J1940) IV SCH (12:00)
[2018-12-01 12:17] LABS: MAGNESIUM LEVEL 1.5 MG/DL (1.8-2.4)
[2018-12-01] MEDS: KCL 10MEQ/100ML SWI (KRUN) 10 MEQ in APPROPRIATE DILUENT 1 EA IV SCH ×6 (12:22→18:11)
[2018-12-01] MEDS: sulfaSALAzine 500 MG TABEC PO SCH ×3 (12:22→20:54)
[2018-12-01] MEDS ORDERED: MAG SULF 1GM/100ML (MAG RUN) 1 GM in APPROPRIATE DILUENT 1 EA IV ONE (14:00)
[2018-12-01] MEDS ORDERED: MORPHINE 4 MG/ML 1ML VIAL/SYRINGE (J2270) IV PRN (14:30)
--- NOTE | 2018-12-01 19:31 | ECHO ---
DATE OF PROCEDURE: 12/01/2018 REFERRING PHYSICIAN: Dr. Reji Martinez INDICATION: Congestive heart failure. HEIGHT: 165 cm WEIGHT: 73 kg DIMENSIONS: IVS: 0.8 LV: 5.7 LVPW: 0.9 LA: 4.2 Aorta: 3.2 IVC: 2.2 Left atrial volume index: 29 mL per meter square. FINDINGS: The study is of acceptable technical quality. Patient is in atrial fibrillation with rapid ventricular response, fluctuating between 105 and 150 beats per minute (bpm). Left ventricle is mildly dilated. There is extensive wall motion abnormality involving whole septum, apex and most of the anterior wall. These segments appear essentially akinetic. The remaining segments are hypokinetic. Overall estimated left ventricular ejection fraction (LVEF) about 20-25%. The right ventricle does not appear grossly enlarged. There is severe biatrial enlargement, reported left atrial volume index and is in my opinion inaccurate. Aortic valve is sclerotic. It has three cusps and normal mobility. Mitral, tricuspid, and pulmonic valves appear normal. No pericardial effusion is noted. There is left pleural effusion. Inferior vena cava is dilated, and there is only partial collapse with respiration indicative of high central venous pressure. Aortic root is normal. Aortic arch and abdominal aorta were not well seen. Doppler evaluation reveals no significant aortic stenosis and trace insufficiency. There is approximately moderate mitral and tricuspid insufficiency. Calculated pulmonary artery pressure is at minimum in high 50s corresponding to moderately severe pulmonary hypertension. Pulmonic valve is functionally competent. Evaluation of diastolic function is inconclusive due to underlying atrial fibrillation. CONCLUSIONS: 1. Study is of acceptable technical quality. 2. Mildly dilated left ventricle with segmental wall motion abnormalities as noted above, superimposed global hypokinesis and overall estimated LVEF 20-25%. This is in the setting of atrial fibrillation with rapid ventricular response. 3. Right ventricle does not appear grossly dilated. 4. Severe biatrial enlargement. 5. High central venous pressure and at least moderate to severe pulmonary hypertension. COMMENT: Subacute bacterial endocarditis (SBE) prophylaxis is not recommended. Study is consistent with acutely exacerbated systolic congestive heart failure and likely underlying ischemic cardiomyopathy.
[2018-12-01 19:38] LABS: TROPONIN I 1.67 NG/ML (< 0.10)
[2018-12-01] MEDS: ATORVASTATIN 20 MG TAB PO SCH (20:54)
[2018-12-01 20:59] LABS: MAGNESIUM LEVEL 1.5 MG/DL (1.8-2.4)
[2018-12-01] MEDS ORDERED: SIMVASTATIN 20 MG TAB PO SCH (21:00)
[2018-12-01] MEDS ORDERED: APIXABAN 2.5 MG TAB (ELIQUIS) PO SCH (21:00)
[2018-12-01] MEDS ORDERED: ASPIRIN 325 MG TAB PO ONE (21:00)
[2018-12-01 21:13] LABS: CALCIUM LEVEL 8.7 MG/DL (8.8-10.2); CREATININE FOR GFR 1.4 MG/DL (0.70-1.30); GLOMERULAR FILTRATION RATE 50.9 (>35); POTASSIUM SERUM 3.6 MEQ/L (3.5-5.1)
--- NOTE | 2018-12-01 21:36 | CR ---
DATE OF CONSULTATION: 12/01/2018 REFERRING PHYSICIAN: Dr. Gutierrez INDICATION: Congestive heart failure, elevated troponin. HISTORY OF PRESENT ILLNESS: Mr. Hawthorne is an 88-year-old man who presented to [facility] by ambulance in 3d artist hours because of orthopnea and severe dyspnea. He tells me that he was in his usual state of health until about a week ago at which point he started developing progressive dyspnea but then since approximately last 1 or 2 days, the dyspnea progressed severely to the point that he was absolutely unable to breathe. He was brought to emergency room and found to be in atrial fibrillation with rapid ventricular response. There was evidence for florid congestive heart failure based on physical examination and chest x-ray. He was treated essentially with diuretics. He received initially 100 mg of furosemide IV and then was started on furosemide drip. He was put on continuous positive airway pressure (CPAP). He was given digoxin, total 0.75 mg IV that led to fairly substantial improvement in his respiratory status. When I saw him in the evening hours, he was telling me that he was feeling much improved even though still short of breath. He reports that he has had poorly described chest discomfort on and off in the last day or two. At his baseline, it is not completely clear what kind of cardiac history he already had. He was followed by myself, but the last time I saw him was in 2008. 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 PAST MEDICAL HISTORY: 1. Chronic atrial fibrillation. 2. Hypertension. 3. Crohn's disease. 4. BPH. 5. Diabetes. 6. He does not carry a definite history of coronary artery disease, but he informed me that apparently I was recommending 10 years ago that he gets a cardiac catheterization. It looks like it was never done. 7. Surgical history is positive for right hemicolectomy, appendectomy, and cholecystectomy. FAMILY HISTORY: No longer relevant but positive for coronary artery disease in distant relatives. SOCIAL HISTORY: The patient lives alone. He does not drink alcohol. He does not smoke. He is fully self-sufficient at his baseline. OUTPATIENT MEDICATIONS: Eliquis 5 mg twice a day, digoxin 0.125 mg a day, diltiazem 360 mg daily extended release, finasteride 5 mg a day, indapamide 1.5 mg a day, lisinopril 40 mg a day, metformin 1 gram twice a day, multivitamin, potassium chloride, simvastatin 20 mg a day, Januvia 100 mg a day and sulfasalazine 500 mg daily. REVIEW OF SYSTEMS: This is somewhat limited because the patient is rather a circumferential historian, but he denies any recent fever, chills, nausea, vomiting. No diarrhea. No recent bleeding problems. He does not recall having peripheral edema lately. He denies any chest discomfort until last maybe couple of days. The rest of review of system is negative. PHYSICAL EXAMINATION: Mr. Hawthorne is an elderly man who appears approximately his age. He is sitting in intensive care unit (ICU) bed. During my exam, he was alert, oriented, and appropriate. Vital signs: Blood pressure 113/60 and typically higher than that, heart rate around 90-120 beats per minute. Afebrile. Jugular venous pressure (JVP) did not look grossly elevated, possibly 2 cm above clavicle. Lungs: Somewhat diminished breath sounds bilaterally. I did not appreciate any wheezing or crackles, by physical exam, there are bilateral pleural effusions. Heart: Exam reveals irregular tachycardia. I did not appreciate any distinct gallop. There is a murmur best heard in the axilla about 2/6 intensity, holosystolic. Abdomen is soft without tenderness or rebound tenderness. There is mild peripheral edema. Peripheral pulses are poorly palpable. Neurologically, he is grossly intact. LABORATORY DATA: CBC: WBC count 12.2, hemoglobin 13.6, hematocrit is 42.6, and platelet count was 292,000. Basic metabolic panel at 0953 hours reveals sodium 138, potassium 3.4, BUN 20, creatinine 1.5 and glucose 329. Lactic acid was initially 9.4 and has been decreasing since; the last one at 1554 hours was 3.8. Magnesium was 1.5. Normal liver function test. Admission Troponin I was 0.59; that has raised to 1.71 at 1554 hours and the last one at 7 o'clock was 1.67. His admission CK was 123 and CK-MB 4.6, albumin is 3.8, INR 1.37 and ABGs at 0930 hours revealed pCO2 28 and pO2 101. Chest x-ray is consistent with congestive heart failure and cardiomegaly. ECG reveals atrial fibrillation with rapid ventricular response, possible recent septal wall myocardial infarction and nonspecific ST-T abnormalities. ASSESSMENT/PLAN: Mr. Hawthorne is an 88-year-old man who has chronic atrial fibrillation and presents with acute dyspnea consistent with acute congestive heart failure. He also had poorly defined chest discomfort on and off over the last few days. ECG is suspicious for recent septal wall myocardial infarction, and he has mild troponin elevation. He is DO NOT INTUBATE (DNI), DO NOT RESUSCITATE (DNR). At this point, there are several issues. As far as the atrial fibrillation is concerned, he is still not well rate-controlled. Because he takes digoxin chronically, and he received fairly significant amount on top of his chronic use, I do not think that giving additional digoxin for rate control is advisable. I will also discontinue Cardizem because his echocardiogram that I interpreted just a few minutes ago reveals severe left ventricular systolic dysfunction. I will give him an order for carvedilol 6.25 mg every 6 hours. Hopefully this will be sufficient to adequately control his rate. I will obtain digoxin level tomorrow to see whether we have any potential for additional digoxin use. He has been chronically anticoagulated with Eliquis, and this continues to be administered. Tomorrow morning will decide about further management. If he should be a candidate for coronary intervention, then will discontinue Eliquis and will cover him with heparin. The second problem is elevated troponin and left ventricular (LV) dysfunction. It is clear-cut that he suffered non-ST elevation myocardial infarction (non-STEMI). The timing is somewhat questionable. The degree of LV dysfunction by echo certainly seems very out of proportion to the current event, and I suspect that he had baseline coronary artery disease and baseline LV systolic dysfunction. I will adjust the medications as noted above. I am going to discontinue his Cardizem and replace it with carvedilol. I am going to temporarily discontinue lisinopril and indapamide until his situation stabilizes. If needs to be for blood pressure control, we can use vasodilators like IV nitroglycerin, but at this point it does not seem to be necessary. I will give him aspirin on top of his Eliquis. I am reluctant to give him Plavix on account of already having a history of Crohn's disease and him being on Eliquis. High dose potent statin will be administered in the form of atorvastatin. Further management will have to be decided later on. Certainly the patient would be probably best served by coronary angiography, but in the setting of an acute heart failure and underlying renal dysfunction, there is a very high potential for contrast- induced nephropathy. It is also questionable whether the patient is a candidate for any more invasive measures like bypass surgery. This will have to be addressed on daily basis. I will continue following with the patient with you. He is certainly critically ill, and his prognosis is guarded at best.
[2018-12-02] VITALS (9 sets, daily range): BP systolic 111–150; BP diastolic 58–73
[2018-12-02] MEDS: CARVedilol 6.25 MG TAB PO SCH ×4 (00:35→17:23)
[2018-12-02 04:56] LABS: BASO % 0.2 % (0.0-1.0); EOS % 0.3 % (0.0-3.0); HEMATOCRIT 38.5 % (42.0-52.0); HEMOGLOBIN 12.9 g/dl (13.5-17.5); LYMPH # 1.4 10^3/uL (1.5-4.5); MEAN CORPUSCULAR HEMOGLOBIN 30.6 pg (27.0-33.0); MEAN CORPUSCULAR HGB CONC 33.5 g/dl (32.0-36.5); MEAN CORPUSCULAR VOLUME 91.4 fl (80.0-96.0); MONO # 0.9 10^3/uL (0.0-0.8); MONO % 8.5 % (0.0-5.0); NEUTROPHILS # 8.2 10^3/uL (1.8-7.7); NEUTROPHILS % 77.2 % (36.0-66.0); PLATELET COUNT, AUTOMATED 195 10^3/uL (150-450); RED BLOOD COUNT 4.21 10^6/uL (4.30-6.10); WHITE BLOOD COUNT 10.6 10^3/uL (4.0-10.0)
[2018-12-02 05:36] LABS: ALBUMIN 3.5 GM/DL (3.2-5.2); ALT/SGPT 32 U/L (12-78); BILIRUBIN,TOTAL 0.9 MG/DL (0.2-1.0); BLOOD UREA NITROGEN 20 MG/DL (7-18); CALCIUM LEVEL 8.6 MG/DL (8.8-10.2); CARBON DIOXIDE LEVEL 31 MEQ/L (21-32); CHLORIDE LEVEL 98 MEQ/L (98-107); CREATININE FOR GFR 1.13 MG/DL (0.70-1.30); GLOMERULAR FILTRATION RATE > 60.0 (>35); GLUCOSE, FASTING 194 MG/DL (70-100); MAGNESIUM LEVEL 1.4 MG/DL (1.8-2.4); NT-PRO BNP 6362 PG/ML (<450); POTASSIUM SERUM 3.2 MEQ/L (3.5-5.1); SODIUM LEVEL 139 MEQ/L (136-145); TOTAL PROTEIN 6.5 GM/DL (6.4-8.2); TROPONIN I 1.28 NG/ML (< 0.10)
[2018-12-02] MEDS ORDERED: POTASSIUM CHLORIDE 10 MEQ SR TABLET PO ONE (06:15)
[2018-12-02] MEDS: MAG SULF 1GM/100ML (MAG RUN) 1 GM in APPROPRIATE DILUENT 1 EA IV SCH ×2 (06:18→07:36)
[2018-12-02] MEDS: HumaLOG INSULIN (NovoLOG) PER UNIT SC SCH ×4 (07:36→20:25)
--- NOTE | 2018-12-02 07:43 | ECGEPIP ---
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
--- NOTE | 2018-12-02 08:20 | IPN ---
DATE: 12/02/2018 Mr. Hawthorne had a relatively good night. He tells me that he has not slept very much, but did not have any paroxysmal nocturnal dyspnea (PND) or orthopnea. He was able to stay without C-PAP all night. He also denies any recurrence of chest discomfort. Vital signs this morning, blood pressure 124/73, heart rate has been in 80s and 90s, he is atrial fibrillation. He had a few episodes of nonsustained ventricular tachycardia (VT) on telemetry, but not more than 4 beats in a row. He is afebrile. Saturation 95% on 3 liters of oxygen. Fluid balance yesterday was about on 1000 mL negative and he is already 1300 negative this morning. Weight is documented 69.7 kg. He is alert, oriented and appropriate. His jugular venous pulse (JVP) was better. I still can see the edge above clavicle in a sitting position. Lungs are reasonably clear. I do not appreciate any wheezing or crackles, much better air movement than yesterday, I still suspect somewhat diminished as he probably has small pleural effusions. Heart Exam: Irregularly irregular rhythm. No gallop or rub. There is a murmur best heard in the axilla about 2/6 intensity holosystolic. Abdomen is soft without tenderness. I do not appreciate any peripheral edema and his peripheral pulses are palpable even though not of good quality. Neurologically he is intact. Laboratory-con[facility], basic metabolic panel with sodium 139, potassium 3.2, BUN 20, creatinine 1.3, GFR more than 60, glucose 194. Magnesium 1.4. Liver function tests are essentially normal. Troponin I is down to 1.28. NT-proBNP is 6300. Digoxin level was 1.1. ASSESSMENT/PLAN: Mr. Hawthorne is an 88-year-old man who has no prior history of coronary artery disease who presented with atrial fibrillation with rapid ventricular response and florid pulmonary edema. He also ruled in for a NSTEMI with ECG indicative of possibly recent septal myocardial infarction and echocardiogram revealing extensive apical wall motion abnormality and overall severely reduced left ventricular systolic function. The patient is currently DO NOT INTUBATE (DNI), DO NOT RESUSCITATE (DNR), and I had a discussion with him about his wishes. He wants to have the most aggressive treatment possible and today I am a lot more optimistic because there has been improvement of renal function and his mental status certainly is intact. As far as the management of acute coronary syndrome is concerned, I will stop apixaban and will start him on Lovenox as of tonight. Will give him on top of aspirin also Plavix while monitoring his blood count. He is on high-dose atorvastatin. He is on beta-blockers and digoxin for rate control. I will put a small dose of lisinopril back to his regimen for his vasodilator properties and for his LV systolic dysfunction. I will contact interventional cardiology in [place] with tentative plans for transfer. I suspect that he most likely will be transferred tomorrow.
[2018-12-02] MEDS ORDERED: diltiaZEM **CD** 180 MG CAP PO SCH (09:00)
[2018-12-02] MEDS ORDERED: POTASSIUM CHLORIDE 10 MEQ SR TABLET PO SCH ×2 (09:00)
[2018-12-02] MEDS ORDERED: LISINOPRIL 40 MG TAB PO SCH (09:00)
[2018-12-02] MEDS ORDERED: INDAPAMIDE 1.25MG TABLET PO SCH (09:00)
[2018-12-02] MEDS ORDERED: DIGOXIN 0.0625MG PER 1/2TABLET PO SCH (09:00)
[2018-12-02] MEDS: ENOXAPARIN 60 MG/0.6 ML SYR (J1650) SC SCH ×2 (09:06→20:20)
[2018-12-02] MEDS: ASPIRIN 325 MG TAB PO SCH (09:06)
[2018-12-02] MEDS: PANTOPRAZOLE 40MG TAB (PROTONIX) PO SCH (09:07)
[2018-12-02] MEDS: sulfaSALAzine 500 MG TABEC PO SCH ×4 (09:07→20:20)
[2018-12-02] MEDS: DIGOXIN 0.125 MG TAB PO SCH (09:07)
[2018-12-02] MEDS: LISINOPRIL 5 MG TAB PO SCH (09:07)
[2018-12-02] MEDS: CLOPIDOGREL 75 MG TAB PO SCH (09:07)
[2018-12-02] MEDS: FINASTERIDE 5 MG TAB PO SCH (09:07)
--- NOTE | 2018-12-02 12:24 | IPNPDOC ---
Subjective Date Seen The patient was seen on 12/02/18. Subjective Chief Complaint/HPI Sarah is comfortable offers no new complaints, possible transfer to [place] in a.m. General: Denies: ROS Unobtainable, Chills, Night Sweats, Fatigue, Malaise, Normal Appetite, Other Symptoms Constitutional: Denies: Chills, Fever, Malaise, Night Sweats, Weakness, Fatigue, Weight Loss, Lethargy, Other Eyes: Denies: Pain, Vision change, Conjunctivae inflammation, Eyelid inflam mation, Redness, Other ENT: Denies: Head Aches, Ear Pain, Dysphagia, Sinus Congestion, Post Nasal Drip, Sore Throat, Epistaxis, Other Symptoms Skin: Denies: Rash, Lesions, Jaundice, Bruising, Itching, Dry, Breakdown, Nail Changes, Other Pulmonary: Denies: Dyspnea, Cough, Pleuritic Chest Pain, Other Symptoms Cardiovascular: Denies: Chest Pain, Palpitations, Orthopnea, Paroxysmal Noc. Dyspnea, Edema, Lt Headedness, Other Symptoms Gastrointestinal: Denies: Nausea, Vomiting, Abdominal Pain, Diarrhea, Constipation, Melena, Hematochezia, Other Symptoms Musculoskeletal: Denies: Neck Pain, Back Pain, Shoulder Pain, Arm Pain, Hand Pain, Leg Pain, Foot Pain, Joint Pain, Muscle Pain, Spasms, Other Symptoms Neurological: Denies: Weakness, Numbness, Incoordination, Change in speech, Confusion, Seizures, Other Symptoms Objective Physical Examination General Exam: Positive: Cooperative Eye Exam: Positive: PERRLA, Conjunctiva & lids normal ENT Exam: Positive: Atraumatic Neck Exam: Positive: Supple Chest Exam: Positive: Clear to auscultation, Normal air movement Heart Exam: Positive: Rate Normal, Normal S1, Normal S2 Abdomen Exam: Positive: Normal bowel sounds, Soft Skin Exam: Positive: Nl turgor and temperature Neuro Exam: Positive: Normal Gait, Normal Speech, Cranial Nerves 3-12 NL Psych Exam: Positive: Mental status NL, Mood NL, Oriented x 3 Assessment /Plan Problems (1) Acute congestive heart failure Status: Acute (2) Ischemia due to increased oxygen demand Status: Acute Plan/VTE VTE Prophylaxis Ordered?: Yes Plan 88 yo diabetic male with Acute hypoxic respiratory failure due to CHF, lactic acidosis, BRANDEE, elevated troponin (demand ischemia vs NSTEMI) and rate controlled Afib. Apaxiban was stopped by cardiology and started on Lovenox Also started on aspirin and Plavix Monitor CBC for any drop in H&H Patient is already on statins and ACEI inhibitors Patient possibly will be discharged to [place] for intervention. Cardiology in a.m. Continue present medications and care VS, I&O, 24H, Fishbone Vital Signs/I&O Vital Signs Date Time Temp Pulse Resp B/P (MAP) Pulse Ox O2 Delivery O2 Flow Rate FiO2 12/02/18 09:07 80 12/02/18 09:07 150/58 12/02/18 09:00 96 12/02/18 08:02 97.1 20 3.0 12/01/18 12:00 40 12/01/18 06:10 Venturi Mask I&O- Last 24 Hours up to 6 AM 12/02/18 06:00 Intake Total 1317.0 ml Output Total 3650 ml Balance -2333.0 ml Laboratory Data 24H LABS Laboratory Tests 2 12/01/18 12:47: Troponin I 1.49#H 12/01/18 15:54: Troponin I 1.71*H, Lactic Acid Followup at 4 Hours 3.8*H 12/01/18 16:30: Bedside Glucose (Misc Panel) 180H 12/01/18 18:59: Troponin I 1.67*H, Anion Gap 12, Glomerular Filtration Rate 50.9, Blood Urea Nitrogen 21H, Creatinine 1.40H, Sodium Level 137, Potassium Level 3.6, Chloride Level 101, Carbon Dioxide Level 24, Calcium Level 8.7L, Magnesium Level 1.5L, TD-Ssb-M-Type Natriuretic Peptide 8725H 12/01/18 20:48: Bedside Glucose (Misc Panel) 209H 12/02/18 04:42: Immature Granulocyte % (Auto) 0.8, White Blood Count 10.6H, Red Blood Count 4.21L, Hemoglobin 12.9L, Hematocrit 38.5L, Mean Corpuscular Volume 91.4, Mean Corpuscular Hemoglobin 30.6, Mean Corpuscular Hemoglobin Concent 33.5, Red Cell Distribution Width 14.0, Platelet Count 195, Neutrophils (%) (Auto) 77.2H, Lymphocytes (%) (Auto) 13.0L, Monocytes (%) (Auto) 8.5H, Eosinophils (%) (Auto) 0.3, Basophils (%) (Auto) 0.2, Neutrophils # (Auto) 8.2H, Lymphocytes # (Auto) 1.4L, Monocytes # (Auto) 0.9H, Eosinophils # (Auto) 0.0, Basophils # (Auto) 0.0, Nucleated Red Blood Cells % (auto) 0.0, Anion Gap 10, Glomerular Filtration Rate > 60.0, Lactic Acid Level 1.6, Blood Urea Nitrogen 20H, Creatinine 1.13, Sodium Level 139, Potassium Level 3.2L, Chloride Level 98, Carbon Dioxide Level 31, Calcium Level 8.6L, Aspartate Amino Transf (AST/SGOT) 45H, Alanine Aminotransferase (ALT/SGPT) 32, Alkaline Phosphatase 55, Total Bilirubin 0.9, Total Protein 6.5, Albumin 3.5, Magnesium Level 1.4L, Troponin I 1.28#H, VX-Oyn-D-Type Natriuretic Peptide 6362H, Albumin/Globulin Ratio 1.17, Digoxin Level 1.1 12/02/18 12:10: Bedside Glucose (Misc Panel) 256H CBC/BMP Laboratory Tests 12/01/18 18:59 Calcium Level 8.7 L 12/02/18 04:42 Calcium Level 8.6 L, Red Blood Count 4.21 L, Mean Corpuscular Volume 91.4, Mean Corpuscular Hemoglobin 30.6, Mean Corpuscular Hemoglobin Concent 33.5, Red Cell Distribution Width 14.0, Neutrophils (%) (Auto) 77.2 H, Lymphocytes (%) (Auto) 1 3.0 L, Monocytes (%) (Auto) 8.5 H, Eosinophils (%) (Auto) 0.3, Basophils (%) (Auto) 0.2, Neutrophils # (Auto) 8.2 H, Lymphocytes # (Auto) 1.4 L, Monocytes # (Auto) 0.9 H, Eosinophils # (Auto) 0.0, Basophils # (Auto) 0.0, Aspartate Amino Transf (AST/SGOT) 45 H, Alanine Aminotransferase (ALT/SGPT) 32, Alkaline Phosphatase 55, Total Bilirubin 0.9, Total Protein 6.5, Albumin 3.5 Microbiology Microbiology 12/01/18 Blood Culture - Preliminary, Resulted No growth after 24 hours . All specim... 12/01/18 Blood Culture - Preliminary, Resulted No growth after 24 hours . All specim... MODESTO LARIOS MD Dec 02, 2018 12:24
[2018-12-02] MEDS: FUROSEMIDE 40 MG/4 ML VIAL (J1940) IV SCH (13:27)
[2018-12-02] MEDS: ATORVASTATIN 20 MG TAB PO SCH (20:20)
--- NOTE | 2018-12-02 21:13 | IPN ---
DATE: 12/02/2018 I came to see Mr. Hawthorne in the evening hours. I was curious about his clinical course during the day. To my surprise, he decided to change his mind and not to pursue any further invasive testing and pursue hospice care. I had a discussion with him on this topic. He informed me that he reconsidered because his last several years were full of discomfort related to his Crohn's disease and loneliness. Apparently, there are no family members left and he does not enjoy his quality of life. He realizes that the cardiac procedures, though they would likely prolong his life, they would not improve the quality and he says that at this point he believes that hospice care is his best option. I tried to convince him otherwise and pointed out that his quality of life could actually improve, to no avail. Consequently, I will withdraw from his care. Please do not hesitate to call me back if he should change his mind. I contacted [facility] and cancelled the tentative transfer for tomorrow.
[2018-12-03] MEDS: FUROSEMIDE 40 MG/4 ML VIAL (J1940) IV SCH (00:27)
[2018-12-03] MEDS: CARVedilol 6.25 MG TAB PO SCH ×2 (00:28→05:38)
[2018-12-03] MEDS: HumaLOG INSULIN (NovoLOG) PER UNIT SC SCH (09:02)
[2018-12-03 09:03] VITALS: BP 111/68
[2018-12-03] MEDS: FINASTERIDE 5 MG TAB PO SCH (09:03)
[2018-12-03] MEDS: DIGOXIN 0.125 MG TAB PO SCH (09:03)
[2018-12-03] MEDS: ASPIRIN 325 MG TAB PO SCH (09:03)
[2018-12-03] MEDS: CLOPIDOGREL 75 MG TAB PO SCH (09:03)
[2018-12-03] MEDS: PANTOPRAZOLE 40MG TAB (PROTONIX) PO SCH (09:03)
[2018-12-03] MEDS: LISINOPRIL 5 MG TAB PO SCH (09:03)
[2018-12-03] MEDS: sulfaSALAzine 500 MG TABEC PO SCH (09:04)
[2018-12-03] MEDS: ENOXAPARIN 60 MG/0.6 ML SYR (J1650) SC SCH (09:04)
--- NOTE | 2018-12-03 09:39 | ECGEPIP ---
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
--- NOTE | 2018-12-03 09:52 | ECGEPIP ---
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
--- NOTE | 2018-12-03 13:14 | DS.PDOC ---
Discharge Summary General Date of Admission Dec 01, 2018 at 05:42 Date of Discharge 12/03/2018 Attending Physician: MODESTO LARIOS MD Discharge Summary PROCEDURES PERFORMED DURING STAY: [None]. ADMITTING DIAGNOSES: 1. Acute CHF, A. fib with RVR]. DISCHARGE DIAGNOSES: 1. [Acute systolic congestive heart failure. #2. Non-ST elevation PR. #3. Atrial fibrillation with rapid ventricular response]. COMPLICATIONS/CHIEF COMPLAINT: Acute Chf. HISTORY OF PRESENT ILLNESS: [Patient is an 88-year-old male with past medical history of ?CHF, Afib on Eliquis, HTN, Crohn's disease, HLD, BPH, DM presented to the ER with complaints of worsening SOB. Stated symptoms started about a week ago and has been getting worse and also noticed that his legs are more swollen since yesterday. He denies any cough, chest pain, fever, chills or any other symptoms apart from dyspnea on exertion. Noted to be hypoxic in ER requiring NRB mask for O2 support. Also was in Afib w/ RVR on presentation that had now resolved. He states that he follows with 2 different family service caseworker, does not know who his PMD is as it changes often]. HOSPITAL COURSE: [88 yo diabetic male with Acute hypoxic respiratory failure due to CHF, lactic acidosis, BRANDEE, elevated troponin secondary to NSTEMI and uncontrolled Afib Apaxiban was stopped by cardiology and started on Lovenox Also started on aspirin and Plavix CBC was monitor for any drop in H&H, but did remain stable. She was already on a statin and julien inhibitors Patient is already on statins and ACEI inhibitors Patient was scheduled to be transferred to [place] for cardiac cath secondary to his and NSTEMI, and patient decided to opt for hospice and comfort care only. He refuses any further workup any further medications. He will be discharged home and hospice will see him at home today and possibly admit him to hospice care. niece was present in the room during this whole time well. He made his decisi on and she understands as well. DISCHARGE MEDICATIONS: Please see below. ALLERGIES: Please see below. PHYSICAL EXAMINATION ON DISCHARGE: VITAL SIGNS: Please see below. GENERAL: [The normal limit] HEENT: [PERRLA] NECK: [Supple] CARDIOVASCULAR EXAMINATION: [S1, S2, irregular. No murmur] RESPIRATORY EXAMINATION: [Clear to A&P with scattered crackles bilaterally] ABDOMINAL EXAMINATION: [Benign] EXTREMITIES: [No clubbing, cyanosis, edema] SKIN: [Normal] NEUROLOGICAL EXAMINATION: [. No focal motor sensory deficit] PSYCHIATRIC EXAMINATION: LABORATORY DATA: Please see below. IMAGING: [As above] PROGNOSIS: [As above] ACTIVITY: [As tolerated]. DIET: [As tolerated] DISCHARGE PLAN: [Discharged home with hospice will follow her] DISPOSITION: Home, Self-Care. DISCHARGE INSTRUCTIONS: 1. [As above]. ITEMS TO FOLLOWUP ON ON OUTPATIENT: 1. [As above]. DISCHARGE CONDITION: [Stable]. TIME SPENT ON DISCHARGE: 40 minutes. Vital Signs/I&Os Vital Signs Date Time Temp Pulse Resp B/P (MAP) Pulse Ox O2 Delivery O2 Flow Rate FiO2 12/03/18 09:03 70 12/03/18 09:03 111/68 12/02/18 12:09 97.5 18 96 12/02/18 08:02 3.0 12/01/18 12:00 40 12/01/18 06:10 Venturi Mask I&O- Last 24 Hours up to 6 AM 12/03/18 06:00 Intake Total 890 ml Output Total 1185 ml Balance -295 ml Laboratory Data Labs 24H Laboratory Tests 2 12/02/18 17:07: Bedside Glucose (Misc Panel) 166H 12/02/18 20:24: Bedside Glucose (Misc Panel) 118H 12/03/18 09:00: Bedside Glucose (Misc Panel) 329H FSBS Laboratory Tests Test 12/02/18 17:07 12/02/18 20:24 12/03/18 09:00 Range/Units Bedside Glucose (Misc Panel) 166 118 329 83-110 MG/DL Microbiology Microbiology 12/01/18 Blood Culture - Preliminary, Resulted No Growth after 48 hours. All Specime... 12/01/18 Blood Culture - Preliminary, Resulted No Growth after 48 hours. All Specime... Discharge Medications Scheduled Apixaban (Eliquis) 5 Mg Tablet, 5 MG PO BID, (Reported) Ascorbate Calcium (Vitamin C) 500 Mg Tablet, 500 MG PO DAILY, (Reported) Digoxin (Digoxin) 125 Mcg Tablet, 125 MCG PO DAILY, (Reported) Diltiazem Hcl (Diltiazem 24Hr ER) 360 Mg Cap.er.24h, 360 MG PO DAILY, (Reported) Finasteride (Finasteride) 5 Mg Tablet, 5 MG PO DAILY, (Reported) Indapamide (Indapamide) 1.25 Mg Tablet, 1.25 MG PO DAILY, (Reported) Lisinopril (Lisinopril) 40 Mg Tablet, 40 MG PO DAILY, (Reported) Loperamide HCl (Loperamide) 2 Mg Capsule, 2 MG PO BID, (Reported) Metformin HCl (Metformin HCl) 1,000 Mg Tablet, 1,000 MG PO BID, (Reported) Multivitamin (Multivitamins) 1 Each Tablet, 1 TAB PO DAILY, (Reported) Potassium Chloride (Potassium Chloride) 20 Meq Tab.er.prt, 20 MEQ PO DAILY, (Reported) Simvastatin (Simvastatin) 20 Mg Tablet, 20 MG PO QHS, (Reported) Sitagliptin Phosphate (Januvia) 100 Mg Tablet, 100 MG PO DAILY, (Reported) Sulfasalazine (Sulfasalazine) 500 Mg Tablet, 500 MG PO QID, (Reported) Vitamin D (Vitamin D3) 1,000 Unit Tablet, 1,000 UNITS PO DAILY, (Reported) Allergies Coded Allergies: No Known Allergies (Verified , 03/05/10) MODESTO LARIOS MD Dec 03, 2018 13:14
== END 2018-12-03 11:40 | disposition hospice, home (50) | DRG 280 ==
LOC: EDBD 04:20 → M ED 04:20 → M ED INP 05:42 → M ICU 06:34
PROVIDERS: ADMIT Student in an Organized Health Care Education/Training Program; ATTEND Internal Medicine
DX: I21.4 Non-ST elevation (NSTEMI) myocardial infarction (principal); J96.01 Acute respiratory failure with hypoxia; I50.23 Acute on chronic systolic (congestive) heart failure; E87.2 Acidosis; K50.90 Crohn's disease, unspecified, without complications; N17.9 Acute kidney failure, unspecified; I11.0 Hypertensive heart disease with heart failure; I48.2 Chronic atrial fibrillation; N40.0 Benign prostatic hyperplasia without lower urinary tract symptoms; Z66 Do not resuscitate; E78.5 Hyperlipidemia, unspecified; E11.9 Type 2 diabetes mellitus without complications; Z90.49 Acquired absence of other specified parts of digestive tract; Z79.01 Long term (current) use of anticoagulants; Z79.84 Long term (current) use of oral hypoglycemic drugs; Z79.899 Other long term (current) drug therapy

== ENCOUNTER 2018-12-06 09:27 | Emergency (ER) | payer MEDICARE, MEDICAID ==
[~2018-12-06] VITALS: Ht 165.1 cm; Wt 72.7 kg
[~2018-12-06 09:27] MED LIST changes: +BREO1INH INH; +CALC500T38 PO; +DIGO0.12 PO; +DILT1CAP46 PO; +ELIQ5TAB PO; +FINA5TAB2 PO; +INDA125TA PO; +JANU100T PO; +LISI40TA PO; +LOPE1CAP5 PO; +METF10004 PO; +MULT-40 PO; +PATIENT COMMENT; +POTA20TA6 PO; +PROAAER10 INH; +SIMV20TA2 PO; +SULF1TAB30 PO; +VITAD1000T PO
[2018-12-06 10:22] LABS: VENOUS BASE EXCESS 1.1 (-2.0-2.0); VENOUS HCO3 26.4 MEQ/L (23.0-27.0); VENOUS O2 SATURATION 63.7 % (60.0-80.0); VENOUS PARTIAL PRESSURE CO2 44.9 mmHg (38.0-50.0); VENOUS PH 7.388 UNITS (7.330-7.430); VENOUS STANDARD HCO3 24.6 MEQ/L; VENOUS TOTAL CO2 27.8 MEQ/L (24.0-28.0)
[2018-12-06 10:27] LABS: BASO % 0.4 % (0.0-1.0); EOS % 0.1 % (0.0-3.0); HEMATOCRIT 41.1 % (42.0-52.0); HEMOGLOBIN 13.6 g/dl (13.5-17.5); LYMPH # 1.9 10^3/uL (1.5-4.5); LYMPH % 17.9 % (24.0-44.0); MEAN CORPUSCULAR HEMOGLOBIN 29.9 pg (27.0-33.0); MEAN CORPUSCULAR HGB CONC 33.1 g/dl (32.0-36.5); MEAN CORPUSCULAR VOLUME 90.3 fl (80.0-96.0); MONO % 9.3 % (0.0-5.0); NEUTROPHILS # 7.8 10^3/uL (1.8-7.7); NEUTROPHILS % 71.7 % (36.0-66.0); PLATELET COUNT, AUTOMATED 277 10^3/uL (150-450); RED BLOOD COUNT 4.55 10^6/uL (4.30-6.10); WHITE BLOOD COUNT 10.8 10^3/uL (4.0-10.0)
[2018-12-06] MEDS ORDERED: NITROGLYCERIN 2% OINT 1 GM *U/D* PKT TOP ONE (10:30)
[2018-12-06 10:32] LABS: INR 1.22; PROTHROMBIN TIME 15.6 SECONDS (12.1-14.4)
[2018-12-06 10:33] LABS: PARTIAL THROMBOPLASTIN TIME 31.5 SECONDS (25.4-37.6)
--- NOTE | 2018-12-06 10:45 | REP ---
CHEST, PORTABLE: AP portable view of the chest is performed and compared to a prior study of 12/01/2018. There is cardiomegaly with vascular congestion and diffuse interstitial edema. There is a small right effusion. There is improvement since the prior study. There is better aeration in the lung bases bilaterally. There is mild calcification and tortuosity of the thoracic aorta. There are degenerative changes of the spine. IMPRESSION: Cardiomegaly with CHF and interstitial edema pattern. Small right effusion. Overall there is improvement compared to the prior study of 12/01/2018. Electronically Signed by Nba Renner MD 12/06/2018 07:25 P
[2018-12-06 10:46] LABS: ALBUMIN 4.4 GM/DL (3.2-5.2); ALT/SGPT 37 U/L (12-78); BILIRUBIN,DIRECT 0.2 MG/DL (0.0-0.2); BILIRUBIN,TOTAL 0.7 MG/DL (0.2-1.0); BLOOD UREA NITROGEN 16 MG/DL (7-18); CALCIUM LEVEL 9.3 MG/DL (8.8-10.2); CARBON DIOXIDE LEVEL 29 MEQ/L (21-32); CHLORIDE LEVEL 101 MEQ/L (98-107); CK-MB VALUE MASS 2.8 NG/ML (<3.6); CPK CREATINE PHOSPHOKINASE 104 U/L (39-308); CREATININE FOR GFR 1.18 MG/DL (0.70-1.30); DIGOXIN LEVEL 0.8 NG/ML (0.5-2.0); GLOMERULAR FILTRATION RATE > 60.0 (>35); GLUCOSE, FASTING 251 MG/DL (70-100); LIPASE 175 U/L (73-393); MB/CK RELATIVE INDEX 2.69 (< OR =4); NT-PRO BNP 4105 PG/ML (<450); POTASSIUM SERUM 3.6 MEQ/L (3.5-5.1); SODIUM LEVEL 139 MEQ/L (136-145); TROPONIN I 0.27 NG/ML (< 0.10)
[2018-12-06] MEDS ORDERED: FUROSEMIDE 100 MG/10 ML VIAL (J1940) IV ONE (11:15)
[2018-12-06] MEDS ORDERED: POTASSIUM CHLORIDE 10 MEQ SR TABLET PO ONE (11:15)
[2018-12-06 13:01] VITALS: BP 145/88
--- NOTE | 2018-12-07 18:45 | ECGEPIP ---
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
== END 2018-12-06 13:05 | disposition short-term general hospital (02) ==
LOC: M ED 09:27
DX: I48.91 Unspecified atrial fibrillation (principal); I50.9 Heart failure, unspecified; I25.2 Old myocardial infarction; J90 Pleural effusion, not elsewhere classified; I11.0 Hypertensive heart disease with heart failure; J44.9 Chronic obstructive pulmonary disease, unspecified; E11.9 Type 2 diabetes mellitus without complications; Z79.899 Other long term (current) drug therapy; Z79.84 Long term (current) use of oral hypoglycemic drugs; Z79.01 Long term (current) use of anticoagulants; Z87.891 Personal history of nicotine dependence
CPT/HCPCS: 71045; 80048; 80076; 80162; 82550; 82553; 82803; 83690; 83880; 84443; 84484; 85025; 85610; 85730; 87040; 93005; 93041; 96374; 99285; J1940

== ENCOUNTER 2019-02-04 06:45 | Inpatient (IN) | payer MEDICARE, MEDICAID ==
[~2019-02-04] VITALS: Ht 165.1 cm; Wt 67.8 kg
[2019-02-04] MEDS ORDERED: METO1TAB33 PO (06:53)
[2019-02-04] MEDS ORDERED: ATOR40TA75 PO (06:53)
[2019-02-04] MEDS ORDERED: FURO20TA2 PO (06:53)
[2019-02-04] MEDS ORDERED: CLOP75TA2 PO (06:53)
[2019-02-04] MEDS ORDERED: NS 1,000 ML IV SCH ×3 (07:11→14:15)
[2019-02-04] MEDS ORDERED: ONDANSETRON 4MG/2ML VIAL (J2405) IV ONE (07:15)
[2019-02-04] MEDS ORDERED: MORPHINE 2 MG/ML 1ML SYRINGE (J2270) IV PRN (07:15)
[2019-02-04 07:54] LABS: BASO % 0.4 % (0.0-1.0); EOS % 0.4 % (0.0-3.0); HEMOGLOBIN 13.9 g/dl (13.5-17.5); LYMPH # 1.4 10^3/uL (1.5-4.5); LYMPH % 13.4 % (24.0-44.0); MEAN CORPUSCULAR HEMOGLOBIN 28.5 pg (27.0-33.0); MEAN CORPUSCULAR HGB CONC 32.3 g/dl (32.0-36.5); MEAN CORPUSCULAR VOLUME 88.1 fl (80.0-96.0); MONO # 0.9 10^3/uL (0.0-0.8); MONO % 8.9 % (0.0-5.0); NEUTROPHILS # 7.8 10^3/uL (1.8-7.7); NEUTROPHILS % 76.2 % (36.0-66.0); PLATELET COUNT, AUTOMATED 179 10^3/uL (150-450); RED BLOOD COUNT 4.88 10^6/uL (4.30-6.10); WHITE BLOOD COUNT 10.2 10^3/uL (4.0-10.0)
[2019-02-04 08:02] LABS: INR 1.28; PROTHROMBIN TIME 15.7 SECONDS (11.8-14.0)
[2019-02-04 08:14] LABS: BILIRUBIN,DIRECT 0.3 MG/DL (0.0-0.2); TOTAL PROTEIN 8.1 GM/DL (6.4-8.2)
[2019-02-04] MEDS: GASTROGRAFIN SOLUTION 30ML PO SCH ×2 (09:15→09:28)
[2019-02-04] MEDS ORDERED: ISOVUE-370 76% 100ML VIAL (Q9967) As Ordered ONE (11:14)
--- NOTE | 2019-02-04 13:11 | REP ---
REASON: Abdominal pain. History of Crohn's disease. COMPARISON: Multiple, the latest 03/05/2010. CONTRAST: 100 mL Isovue 370. Dilated gas and contrast filled small bowel loops are seen throughout the abdomen and pelvis. There is an area in the right upper quadrant having the appearance of matted bowel loops and thickened rae with intermingling fatty infiltration. This represents a change from the prior exam. There is no evidence of complete intestinal obstruction. Gas and stool is seen in the rectum. There is scattered mesenteric adenopathy. There is a ventral hernia essentially unchanged from the prior exam through which only mesentery protrudes. Surgical clips are again seen in the right lower quadrant. The liver is essentially unchanged although better imaged today after intravenous contrast was administered. There is intrahepatic ductal diltation likely secondary to the patient's post cholecystectomy state. The spleen, pancreas, adrenal glands and kidneys are within normal limits. The abdominal aorta and paraaortic regions are within normal limits. There is no evidence of pelvic sidewall adenopathy or mass. There are bilateral vas deferens calcifications status quo and there are other pelvic phleboliths. Bone window technique throughout the exam shows advanced chronic spinal degenerative changes with bilateral L5 spondylolysis. The lung bases are unchanged showing no evidence of acute disease. IMPRESSION: There is either an early small bowel obstruction which may be partial versus a small bowel ileus. This is seen in conjunction with matted appearing small bowel loops in the right upper quadrant with related findings as described above. I cannot rule out the possibility of a right upper quadrant abscess. The bowel loops in that area are noncontrast opacified or poorly contrast opacified severely limiting evaluation of them. No free fluid is seen in the abdomen, however, small amount of fluid trapped in the small bowel mesentery adjacent to this almost phlegmonous appearing mesentery cannot be ruled out. Other findings as described above. Electronically Signed by Conrad Kelly DO 02/05/2019 03:04 P
[2019-02-04] MEDS ORDERED: LISI-538 PO (14:03)
[2019-02-04] MEDS ORDERED: NITR0.4S14 SL (14:05)
[2019-02-04] MEDS ORDERED: GLUCOSE 4 GM CHEW TABLET PO PRN (14:15)
[2019-02-04] MEDS ORDERED: MORPHINE 4 MG/ML 1ML VIAL/SYRINGE (J2270) IV PRN (14:15)
[2019-02-04] MEDS ORDERED: DEXTROSE 50% 50 ML SYRINGE IV PRN (14:15)
[2019-02-04] MEDS ORDERED: GLUCAGON FOR INJ 1 MG VIAL (J1610) SC PRN (14:15)
[2019-02-04] MEDS ORDERED: ONDANSETRON 4MG/2ML VIAL (J2405) IV PRN (14:15)
[2019-02-04] MEDS ORDERED: PIPERACILLIN/TAZOBACTAM SOD 3.375 GM in D5W MINI-BAG PLUS 50 ML IV SCH (15:00)
--- NOTE | 2019-02-04 15:08 | HPEPDOC ---
General Date of Admission 02/04/19 Date of Service: Feb 04, 2019 Chief Complaint The patient is a 88-year-old male admitted with a reason for visit of Abdominal Pain. Source: Patient, RN/, Old records History of Present Illness Patient is an 88-year-old male with past medical history of Systolic CHF with EF of 20 to 25%, ischemic cardiomyopathy, Severe pulmonary hypertension with right heart failure, Afib on Eliquis, HTN, Crohn's disease, HLD, BPH, DM presented to the ER with complaints of upper Abdominal pain for 4 days with 7 to 8 watery stool since last night. He describes the pain as constantly present dull ache all across the upper abdomen epigastrium LLQ and RUQ extending like a bend with intermittent sharp cramps. During the cramps the pain is 10/10 otherwise it is about 6/10. It radiates from the right to left of the upper abdomen. do not go to the back and does not go downwards. The is no associated nausea or vomiting. He bowels are always loose stools due to Crohn's and bowel surgery about 2 to 3 times a day but last night he had watery stools about 7 to 10 times in a period of 6 hours. He had a similar pain about 3 weeks ago which lasted for 2 days then got better spontaneously. So this time also he waited but as the pain was not getting betting so he came to the ED. CT abdomen showed either an early small bowel obstruction which may be partial versus a small bowel ileus. This is seen in conjunction with matted appearing small bowel loops in the right upper quadrant could not rule out the possibility of a right upper quadrant abscess. The bowel loops in that area are noncontrast opacified or poorly contrast opacified severely limiting evaluation of them. No free fluid is seen in the abdomen, however, small amount of fluid trapped in the small bowel mesentery adjacent to this almost phlegmonous appearing mesentery cannot be ruled out. Patient admitted for Partial SBO / Ileus with the possibility of RUQ abscess. Home Medications Scheduled Apixaban (Eliquis) 5 Mg Tablet, 5 MG PO BID, (Reported) Ascorbate Calcium (Vitamin C) 500 Mg Tablet, 500 MG PO DAILY, (Reported) Atorvastatin Calcium (Atorvastatin Calcium) 40 Mg Tablet, 40 MG PO DAILY, (Reported) Clopidogrel Bisulfate (Clopidogrel) 75 Mg Tablet, 75 MG PO DAILY, (Reported) Digoxin (Digoxin) 125 Mcg Tablet, 125 MCG PO DAILY, (Reported) Finasteride (Finasteride) 5 Mg Tablet, 5 MG PO DAILY, (Reported) Furosemide (Furosemide) 20 Mg Tablet, 20 MG PO DAILY, (Reported) Indapamide (Indapamide) 1.25 Mg Tablet, 1.25 MG PO DAILY, (Reported) Lisinopril (Lisinopril) 20 Mg Tablet, 20 MG PO DAILY, (Reported) Loperamide HCl (Loperamide) 2 Mg Capsule, 2 MG PO BID, (Reported) Metformin HCl (Metformin HCl) 1,000 Mg Tablet, 1,000 MG PO BID, (Reported) Metoprolol Succinate (Metoprolol Succinate) 100 Mg Tab.er.24h, 100 MG PO BID, (Reported) Multivitamin (Multivitamins) 1 Each Tablet, 1 TAB PO DAILY, (Reported) Potassium Chloride (Potassium Chloride) 20 Meq Tab.er.prt, 20 MEQ PO DAILY, (Reported) Sitagliptin Phosphate (Januvia) 100 Mg Tablet, 100 MG PO DAILY, (Reported) Sulfasalazine (Sulfasalazine) 500 Mg Tablet, 500 MG PO QID, (Reported) Vitamin D (Vitamin D3) 1,000 Unit Tablet, 1,000 UNITS PO DAILY, (Reported) Scheduled PRN Nitroglycerin (Nitroglycerin) 0.4 Mg Tab.subl, 0.4 MG SL NITRO PRN for CHEST PAIN, (Reported) Allergies Coded Allergies: No Known Allergies (Verified , 02/04/19) Past Medical History Medical History Systolic CHF with EF of 20 to 25%, ischemic cardiomyopathy, Severe pulmonary hypertension with right heart filure, Afib on Eliquis, HTN, Crohn's disease, HLD, BPH, DM, diverticulosis Surgical History Right johnny colectomy with terminal ileum resection in Appendectomy Cholecystectomy Family History Significant Family History: Noncontributory reviewed with patient. Social History * Smoker: former Smoker (quit 35 years ago. ) Alcohol: Denies Drugs: denies A-FIB/CHADSVASC A-FIB History Current/History of A-Fib/PAF?: Yes Current PO Anticoag Therapy: Yes Review of Systems Constitutional: Denies: Chills, Fever, Night Sweats Eyes: Denies: Pain, Vision change ENT: Denies: Head Aches, Ear Pain, Dysphagia Skin: Denies: Rash, Lesions, Breakdown Pulmonary: Denies: Dyspnea, Cough Cardiovascular: Denies: Chest Pain, Palpitations, Orthopnea, Paroxysmal Noc. Dyspnea, Lt Headedness Gastrointestinal: Reports: Abdominal Pain, Diarrhea; Denies: Nausea, Vomiting, Constipation, Melena, Hematochezia Genitourinary: Denies: Dysuria, Frequency, Incontinence, Retention Hematologic: Denies: Bruising, Bleeding Excessively Musculoskeletal: Denies: Neck Pain, Back Pain, Joint Pain, Muscle Pain, Spasms Psych: Reports: Mood Normal; Denies: Depression, Memory Issues Physical Examination General Exam: Positive: Alert, Cooperative, No Acute Distress Eye Exam: Positive: PERRLA, Conjunctiva & lids normal, EOMI; Negative: Sclera icteric ENT Exam: Positive: Atraumatic, Mucous membr. moist/pink, Pharynx Normal Neck Exam: Positive: Supple; Negative: JVD, thyromegaly Chest Exam: Positive: Clear to auscultation, Normal air movement Heart Exam: Positive: Rate Normal, Irregular Rhythm, Normal S1, Normal S2; Negative: Gallops, Murmurs, Rubs Telemetry: Positive: Atrial fibrillation Abdomen Exam: Positive: BS Hyperactive, Tenderness, Other (no guarding or rigidity present) Extremity Exam: Negative: Clubbing, Cyanosis, Edema Skin Exam: Positive: Nl turgor and temperature; Negative: Breakdown, Lesion Psych Exam: Positive: Memory Intact, Oriented x 3 Vital Signs Vital Signs Date Time Temp Pulse Resp B/P (MAP) Pulse Ox O2 Delivery O2 Flow Rate FiO2 02/04/19 11:37 18 174/75 (108) 02/04/19 11:00 79 97 Room Air 02/04/19 06:45 96.5 Laboratory Data Labs 24H Laboratory Tests 2 02/04/19 07:24: Immature Granulocyte % (Auto) 0.7, White Blood Count 10.2H, Red Blood Count 4.88, Hemoglobin 13.9, Hematocrit 43.0, Mean Corpuscular Volume 88.1, Mean Corpuscular Hemoglobin 28.5, Mean Corpuscular Hemoglobin Concent 32.3, Red Cell Distribution Width 15.1H, Platelet Count 179, Neutrophils (%) (Auto) 76.2H, Lymphocytes (%) (Auto) 13.4L, Monocytes (%) (Auto) 8.9H, Eosinophils (%) (Auto) 0.4, Basophils (%) (Auto) 0.4, Neutrophils # (Auto) 7.8H, Lymphocytes # (Auto) 1.4L, Monocytes # (Auto) 0.9H, Eosinophils # (Auto) 0.0, Basophils # (Auto) 0.0, Nucleated Red Blood Cells % (auto) 0.0, Prothrombin Time 15.7H, Prothromb Time International Ratio 1.28, Aspartate Amino Transf (AST/SGOT) 22, Alanine Aminotransferase (ALT/SGPT) 24, Alkaline Phosphatase 78, Total Bilirubin 1.0, Direct Bilirubin 0.3H, Total Protein 8.1, Albumin 4.0, Albumin/Globulin Ratio 0.98L, Lipase 514H 02/04/19 07:47: POC Glucose (Misc Panel) 259H, POC Sodium (Misc Panel) 136, POC Potassium (Misc Panel) 3.3L, POC Chloride (Misc Panel) 93L, POC Total CO2 (Misc Panel) 28.0H, POC Blood Urea Nitrogen (Misc Panel 12, POC Ionized Calcium (Misc Panel) 4.5, POC Creatinine (Misc Panel) 1.1, POC Hematocrit (Misc Panel) 43.0 CBC/BMP Laboratory Tests 02/04/19 07:24 Red Blood Count 4.88, Mean Corpuscular Volume 88.1, Mean Corpuscular Hemoglobin 28.5, Mean Corpuscular Hemoglobin Concent 32.3, Red Cell Distribution Width 15.1 H, Neutrophils (%) (Auto) 76.2 H, Lymphocytes (%) (Auto) 13.4 L, Monocytes (%) (Auto) 8.9 H, Eosinophils (%) (Auto) 0.4, Basophils (%) (Auto) 0.4, Neutrophils # (Auto) 7.8 H, Lymphocytes # (Auto) 1.4 L, Monocytes # (Auto) 0.9 H, Eosinophils # (Auto) 0.0, Basophils # (Auto) 0.0 Assessment/Plan Patient is an 88-year-old male with past medical history of Systolic CHF with EF of 20 to 25%, ischemic cardiomyopathy, Severe pulmonary hypertension with right heart failure, Afib on Eliquis, HTN, Crohn's disease, HLD, BPH, DM presented to the ER with complaints of upper Abdominal pain for 4 days with 7 to 8 watery stool since last night. CT abdomen showed either an early small bowel obstruction which may be partial versus a small bowel ileus. This is seen in conjunction with matted appearing small bowel loops in the right upper quadrant could not rule out the possibility of a right upper quadrant abscess. The bowel loops in that area are noncontrast opacified or poorly contrast opacified severely limiting evaluation of them. No free fluid is seen in the abdomen, however, small amount of fluid trapped in the small bowel mesentery adjacent to this almost phlegmonous appearing mesentery cannot be ruled out. Patient admitted for Partial SBO / Ileus with the possibility of RUQ abscess. Partial SBO/ Ileus with possible RUQ abscess will keep NPO , IVF, zosyn surgical consult Pain control with Morphine. Hypokalemia will give potassium IV. Elevated lipase this is probably for the small bowel i do not think patient has pancreatitis as Pancreas i CT looks OK. Crohn's disese will hold mesalazine give antibiotics, ivf , pain meds Diabetes will hold metformin and januvia place on lispro HS scale q 6 hours. FS q 6 hours Chronic Afib rate controlled continue metoprolol and digoxin. hold eliquis Systolic CHF with severe pulmonary hypertension and right heart failure due to left heart failure. due to ischemic cardimyopathy patient is euvolemic will hold lasix and indapamide will give IVF as patient is NPO. BPH continue finasteride Plan / VTE VTE Prophylaxis Ordered?: Yes TINA DUKE MD Feb 04, 2019 13:37
[2019-02-04] MEDS: PANTOPRAZOLE 40MG INJ (PROTONIX) (C9113) IV SCH (15:12)
[2019-02-04 16:29] VITALS: BP 141/59
[2019-02-04] MEDS: KCL 40MEQ in NS 1000ML 1,000 ML IV SCH (16:48)
[2019-02-04] MEDS: PIPERACILLIN/TAZOBACTAM SOD 2.25 GM in D5W MINI-BAG PLUS 50 ML IV SCH ×2 (16:48→21:58)
--- NOTE | 2019-02-04 17:53 | ECGEPIP ---
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
[2019-02-04] MEDS: HumaLOG INSULIN (NovoLOG) PER UNIT SC SCH (18:00)
--- NOTE | 2019-02-04 18:31 | CR.PDOC ---
General Surgery Consultation Date of Consultation 02/04/19 History and Physical CONSULT REPORT FOR: Emergency room/hospitalist service REASON FOR CONSULTATION: abdominal pain, bowel obstruction, Crohn's disease HISTORY OF PRESENT ILLNESS: I was asked to see this 88 year old male patient who presented to the ER with complains of 2-3 days history of epigastric pain. He is unfortunately not a good historian. His history is collaborated with the person accompanying him. He demonstrates an area of discomfort over epigastric area, left upper and right upper quadrant area that he describes as sharp and constant for the past 3 days. He had a similar episode 2 weeks ago which resolved by itself. He has a longstanding history of Crohn's disease for which he takes sulfasalazine but is not managed by anyone for the past several years. He reports 2-3 daily loose watery stools that may get exacerbated at times to 3-5 loose bms. This has not changed for the past couple of days that he is having abdominal discomfort. He denies nausea. He is able to tolerate oral intake but reports poor appetite. He has a long history of Crohn's disease for which at some point more than 20 years ago he had resection of the involved terminal ileum as well as the right colon ileocolic anastomosis. This was done in [place]. He has not had any colonoscopies performed since 2009. This was done here for an episode of lower GI bleeding. He has been recently admitted to the hospital for congestive heart failure and patient reports persistent and has been feeling weak, short of breath on minimal effort. Patient received some pain medication here in the emergency room and reports his pain is all better at the time that I saw him. He is CT of the abdomen and pelvis showing some abnormal findings in this was asked to evaluate him for this. PAST MEDICAL HISTORY: 1. Crohn's Disease 2. Systolic CHF with EF of 20 to 25%, ischemic cardiomyopathy, Severe pulmonary hypertension with right heart filure, Afib on Eliquis, HTN, Crohn's disease, HLD, BPH, DM, diverticulosis PAST SURGICAL HISTORY: INCLUDES: 1. resection of terminal ileum and right colon for Crohn's disease 2. Colonoscopy 3. Appendectomy 4. Cholecystectomy ALLERGIES: Please see below. FAMILY HISTORY: noncontributory HOME MEDICATIONS: Please see below. REVIEW OF SYSTEMS: GENERAL: Reports feeling weak. HEENT: [Denies blurred vision and double vision. Denies ear symptoms. Denies hoarseness]. NECK: Denies any neck pain CARDIOVASCULAR: [Denies chest pain and palpitations]. Not able to lay down flat. Reports shortness of breath and walking a block MUSCULOSKELETAL: [Denies arthralgias, back pain and thrombophlebitis]. SKIN: [Denies rash]. NEUROLOGIC: [Denies headache, stroke and transient ischemic attack]. PSYCHIATRIC: [Denies anxiety and depression]. ENDOCRINE: [Denies thyroid disease]. HEMATOLOGY/ONCOLOGY: [Denies bleeding or clotting disorder]. Patient on Eliquis for atrial fibrillation. PULMONARY: [Denies chronic cough, dyspnea and wheezing]. GASTROINTESTINAL: See HPI. GENITOURINARY: [Denies dysuria, frequency, hematuria and nocturia]. ENDOCRINE: [Denies polydipsia, polyphagia, polyuria, heat or cold intolerance]. INFECTIOUS: [Denies any recent upper respiratory tract infection, UTI, need for use of antibiotics]. NUTRITION: Reports poor appetite. PHYSICAL EXAMINATION: VITALS SIGNS: Please see below. GENERAL APPEARANCE: Patient seen sitting up on the bed, relatively comfortable. Currently denies any ongoing abdominal discomfort. Not in any acute distress. SKIN: Warm and dry. HEENT: [Normocephalic, atraumatic. [place] palpebral conjunctiva, anicteric sclerae. Lips mildly dry]. NECK: [Supple, no thyromegaly. No obvious jugular venous distention]. LUNGS: [Clear to auscultation bilaterally. No wheezing appreciated]. HEART: Irregular heart rhythm, rates in the 70s to 90s in the monitor ABDOMEN: Abdomen is mildly distended, soft, nontender on palpation. He has s everal incisions on the abdomen including an midline abdominal incision and what appears to be #from a retention suture. He has a reducible hernia in the epigastric area part of the incision. He is nontender at the area of the hernia. Slightly tympanitic to percussion. EXTREMITIES: No edema ANCILLARIES: LABORATORY DATA: Please see below. IMAGING STUDIES: CT abdomen and pelvis There is either an early small bowel obstruction which may be partial versus a small bowel ileus. This is seen in conjunction with matted appearing small bowel loops in the right upper quadrant with related findings as described above. I cannot rule out the possibility of a right upper quadrant abscess. The bowel loops in that area are noncontrast opacified or poorly contrast opacified severely limiting evaluation of them. No free fluid is seen in the abdomen, however, small amount of fluid trapped in the small bowel mesentery adjacent to this almost phlegmonous appearing mesentery cannot be ruled out. Other findings as described above. IMPRESSION AND PLAN: Long history of Crohn's disease. Patient appears to be symptomatic from it and is not adequately controlled with his sulfasalazine. He has not seen any student services vice president for years now. Epigastric pain, unclear etiology at this point Possible ileus versus partial small bowel obstruction Abnormal-appearing CT specifically on the right upper quadrant area. The radiologist read this as possible matted loops of small bowel although I could not trace the course of the bowel to that area. Could be some mesenteric thickening. I don't think this is an abscess. Unclear if this is related to his Crohn's disease. Despite the appearance of mildly distended loops of bowel patient does not telling me any symptoms of bowel obstruction in fact he continues to have loose stools despite his epigastric discomfort. He is denying any nausea and at the time that I saw him his epigastric discomfort seems to be resolved. Thus I will hold off on NG tube and if he continues not to have any nausea probably can try him on clear liquids. I think he should have a consultation with a student services vice president either as inpatient or urgently as an outpatient as I don't think is causing this is fully controlled with sulfasalazine. I'm not sure of the significance of the abnormal findings on CT. Certainly is not showing signs of sepsis to think that this is an abscess. I'm also not sure whether this is within the bowel or in the mesentery of the small bowel. Point we should check either a small bowel follow-through or a CT enterography depending on his course to further look at the area whether this is within the bowel or not. I'm not sure if this is related to his Crohn's disease or in that if he has fistulized in Crohn's disease. Given his significant cardiac history unfortunately I don't think he is a candidate for any elective abdominal surgery. I will follow the patient's course while he is here in the hospital. Suggest getting him lined up for a gastroenterology consult. Vital Signs Vital Signs Date Time Temp Pulse Resp B/P (MAP) Pulse Ox O2 Delivery O2 Flow Rate FiO2 02/04/19 13:22 75 18 95 Room Air 02/04/19 11:37 174/75 (108) 02/04/19 06:45 96.5 Laboratory Data Labs 24H Laboratory Tests 2 02/04/19 07:24: Immature Granulocyte % (Auto) 0.7, White Blood Count 10.2H, Red Blood Count 4.88, Hemoglobin 13.9, Hematocrit 43.0, Mean Corpuscular Volume 88.1, Mean Corpuscular Hemoglobin 28.5, Mean Corpuscular Hemoglobin Concent 32.3, Red Cell Distribution Width 15.1H, Platelet Count 179, Neutrophils (%) (Auto) 76.2H, Lymphocytes (%) (Auto) 13.4L, Monocytes (%) (Auto) 8.9H, Eosinophils (%) (Auto) 0.4, Basophils (%) (Auto) 0.4, Neutrophils # (Auto) 7.8H, Lymphocytes # (Auto) 1.4L, Monocytes # (Auto) 0.9H, Eosinophils # (Auto) 0.0, Basophils # (Auto) 0.0, Nucleated Red Blood Cells % (auto) 0.0, Prothrombin Time 15.7H, Prothromb Time International Ratio 1.28, Aspartate Amino Transf (AST/SGOT) 22, Alanine A minotransferase (ALT/SGPT) 24, Alkaline Phosphatase 78, Total Bilirubin 1.0, Direct Bilirubin 0.3H, Total Protein 8.1, Albumin 4.0, Albumin/Globulin Ratio 0.98L, Lipase 514H 02/04/19 07:47: POC Glucose (Misc Panel) 259H, POC Sodium (Misc Panel) 136, POC Potassium (Misc Panel) 3.3L, POC Chloride (Misc Panel) 93L, POC Total CO2 (Misc Panel) 28.0H, POC Blood Urea Nitrogen (Misc Panel 12, POC Ionized Calcium (Misc Panel) 4.5, POC Creatinine (Misc Panel) 1.1, POC Hematocrit (Misc Panel) 43.0 CBC/BMP Laboratory Tests 02/04/19 07:24 Red Blood Count 4.88, Mean Corpuscular Volume 88.1, Mean Corpuscular Hemoglobin 28.5, Mean Corpuscular Hemoglobin Concent 32.3, Red Cell Distribution Width 15.1 H, Neutrophils (%) (Auto) 76.2 H, Lymphocytes (%) (Auto) 13.4 L, Monocytes (%) (Auto) 8.9 H, Eosinophils (%) (Auto) 0.4, Basophils (%) (Auto) 0.4, Neutrophils # (Auto) 7.8 H, Lymphocytes # (Auto) 1.4 L, Monocytes # (Auto) 0.9 H, Eosinophils # (Auto) 0.0, Basophils # (Auto) 0.0 Home Medications Scheduled Apixaban (Eliquis) 5 Mg Tablet, 5 MG PO BID, (Reported) Ascorbate Calcium (Vitamin C) 500 Mg Tablet, 500 MG PO DAILY, (Reported) Atorvastatin Calcium (Atorvastatin Calcium) 40 Mg Tablet, 40 MG PO DAILY, (Reported) Clopidogrel Bisulfate (Clopidogrel) 75 Mg Tablet, 75 MG PO DAILY, (Reported) Digoxin (Digoxin) 125 Mcg Tablet, 125 MCG PO DAILY, (Reported) Finasteride (Finasteride) 5 Mg Tablet, 5 MG PO DAILY, (Reported) Furosemide (Furosemide) 20 Mg Tablet, 20 MG PO DAILY, (Reported) Indapamide (Indapamide) 1.25 Mg Tablet, 1.25 MG PO DAILY, (Reported) Lisinopril (Lisinopril) 20 Mg Tablet, 20 MG PO DAILY, (Reported) Loperamide HCl (Loperamide) 2 Mg Capsule, 2 MG PO BID, (Reported) Metformin HCl (Metformin HCl) 1,000 Mg Tablet, 1,000 MG PO BID, (Reported) Metoprolol Succinate (Metoprolol Succinate) 100 Mg Tab.er.24h, 100 MG PO BID, (Reported) Multivitamin (Multivitamins) 1 Each Tablet, 1 TAB PO DAILY, (Reported) Potassium Chloride (Potassium Chloride) 20 Meq Tab.er.prt, 20 MEQ PO DAILY, (Reported) Sitagliptin Phosphate (Januvia) 100 Mg Tablet, 100 MG PO DAILY, (Reported) Sulfasalazine (Sulfasalazine) 500 Mg Tablet, 500 MG PO QID, (Reported) Vitamin D (Vitamin D3) 1,000 Unit Tablet, 1,000 UNITS PO DAILY, (Reported) Scheduled PRN Nitroglycerin (Nitroglycerin) 0.4 Mg Tab.subl, 0.4 MG SL NITRO PRN for CHEST PAIN, (Reported) Allergies Coded Allergies: No Known Allergies (Verified , 02/04/19) JORGITO VALLE MD Feb 04, 2019 13:49
[2019-02-04] MEDS ORDERED: HumaLOG INSULIN (NovoLOG) PER UNIT SC SCH (21:00)
[2019-02-04] MEDS ORDERED: METOPROLOL TARTRATE 100 MG TAB PO SCH (21:00)
[2019-02-04] MEDS: METOPROLOL SUCC (TopROL XL) 100MG *XL* TAB PO SCH (21:58)
[2019-02-04] MEDS: HEPARIN SOD (PORCINE) 5000 UNITS/ML VIAL SC SCH (21:58)
[2019-02-04 22:00] VITALS: BP 129/75
[2019-02-05] MEDS: HumaLOG INSULIN (NovoLOG) PER UNIT SC SCH ×5 (00:12→21:00)
[2019-02-05] MEDS: KCL 40MEQ in NS 1000ML 1,000 ML IV SCH (00:15)
[2019-02-05] MEDS: PIPERACILLIN/TAZOBACTAM SOD 2.25 GM in D5W MINI-BAG PLUS 50 ML IV SCH ×4 (04:21→21:56)
[2019-02-05 06:00] VITALS: BP 136/78
[2019-02-05 07:59] LABS: BLOOD UREA NITROGEN 11 MG/DL (7-18); CALCIUM LEVEL 8.7 MG/DL (8.8-10.2); CARBON DIOXIDE LEVEL 31 MEQ/L (21-32); CHLORIDE LEVEL 103 MEQ/L (98-107); CREATININE FOR GFR 0.94 MG/DL (0.70-1.30); GLOMERULAR FILTRATION RATE > 60.0 (>35); GLUCOSE, FASTING 125 MG/DL (70-100); MAGNESIUM LEVEL 1.6 MG/DL (1.8-2.4); SODIUM LEVEL 141 MEQ/L (136-145)
[2019-02-05 08:12] LABS: BASO % 0.3 % (0.0-1.0); EOS # 0.1 10^3/uL (0.0-0.50); EOS % 0.7 % (0.0-3.0); HEMATOCRIT 35.2 % (42.0-52.0); LYMPH # 1.5 10^3/uL (1.5-4.5); LYMPH % 21.8 % (24.0-44.0); MEAN CORPUSCULAR HEMOGLOBIN 27.8 pg (27.0-33.0); MEAN CORPUSCULAR HGB CONC 32.7 g/dl (32.0-36.5); MEAN CORPUSCULAR VOLUME 85.2 fl (80.0-96.0); MONO # 0.8 10^3/uL (0.0-0.8); MONO % 11.5 % (0.0-5.0); NEUTROPHILS # 4.4 10^3/uL (1.8-7.7); NEUTROPHILS % 65.1 % (36.0-66.0); PLATELET COUNT, AUTOMATED 135 10^3/uL (150-450); RED BLOOD COUNT 4.13 10^6/uL (4.30-6.10); WHITE BLOOD COUNT 6.7 10^3/uL (4.0-10.0)
--- NOTE | 2019-02-05 08:22 | IPNPDOC ---
Subjective Date Seen The patient was seen on 02/05/19. Subjective Chief Complaint/HPI Says abdominal pain is better, no nausea or vomiting. No further diarrrhea and no bowel movements over night , no fever or chills, no chest pain or sob. Objective Physical Examination General Exam: Positive: Alert, Cooperative, No Acute Distress Eye Exam: Positive: PERRLA, Conjunctiva & lids normal, EOMI; Negative: Sclera icteric ENT Exam: Positive: Atraumatic, Mucous membr. moist/pink, Pharynx Normal Neck Exam: Positive: Supple; Negative: JVD, thyromegaly Chest Exam: Positive: Clear to auscultation, Normal air movement Heart Exam: Positive: Rate Normal, Irregular Rhythm, Normal S1, Normal S2; Negative: Gallops, Murmurs, Rubs Telemetry: Positive: Atrial fibrillation Abdomen Exam: Positive: BS Hyperactive, Tenderness, Other (no guarding or rigidity present) Extremity Exam: Negative: Clubbing, Cyanosis, Edema Skin Exam: Positive: Nl turgor and temperature; Negative: Breakdown, Lesion Psych Exam: Positive: Memory Intact, Oriented x 3 Assessment /Plan Assessment Patient is an 88-year-old male with past medical history of Systolic CHF with EF of 20 to 25%, ischemic cardiomyopathy, Severe pulmonary hypertension with right heart failure, Afib on Eliquis, HTN, Crohn's disease, HLD, BPH, DM presented to the ER with complaints of upper Abdominal pain for 4 days with 7 to 8 watery stool since last night. CT abdomen showed either an early small bowel obstruction which may be partial versus a small bowel ileus. This is seen in conjunction with matted appearing small bowel loops in the right upper quadrant could not rule out the possibility of a right upper quadrant abscess. The bowel loops in that area are noncontrast opacified or poorly contrast opacified severely limiting evaluation of them. No free fluid is seen in the abdomen, however, small amount of fluid trapped in the small bowel mesentery adjacent to this almost phlegmonous appearing mesentery cannot be ruled out. Patient admitted for Partial SBO / Ileus with the possibility of RUQ abscess. Partial SBO/ Ileus with possible RUQ abscess pain better did ntot need any morphine overnight. seems like improving will allow clear liquids. continue IVF, zosyn will follow surgical recommendations. Hypokalemia replaced Hypomagnesemia replaced. Elevated lipase this is probably for the small bowel i do not think patient has pancreatitis as Pancreas i CT looks OK. Crohn's disese will hold mesalazine give antibiotics, ivf , pain meds Diabetes will hold metformin and januvia place on lispro HS scale q 6 hours. FS q 6 hours Chronic Afib rate controlled continue metoprolol and digoxin. hold eliquis Systolic CHF with severe pulmonary hypertension and right heart failure due to left heart failure. due to ischemic cardimyopathy patient is euvolemic will hold lasix and indapamide BPH continue finasteride Plan/VTE VTE Prophylaxis Ordered?: Yes VS, I&O, 24H, Fishbone Vital Signs/I&O Vital Signs Date Time Temp Pulse Resp B/P (MAP) Pulse Ox O2 Delivery O2 Flow Rate FiO2 02/05/19 06:00 97.3 90 16 136/78 (97) 94 02/04/19 15:00 Room Air I&O- Last 24 Hours up to 6 AM 02/05/19 06:00 Intake Total 1000 ml Output Total 1575 ml Balance -575 ml Laboratory Data 24H LABS Laboratory Tests 2 02/04/19 17:30: Bedside Glucose (Misc Panel) 157H 02/04/19 21:15: Bedside Glucose (Misc Panel) 147H 02/04/19 23:54: Bedside Glucose (Misc Panel) 132H 02/05/19 05:42: Anion Gap 7L, Glomerular Filtration Rate > 60.0, Blood Urea Nitrogen 11, Creatinine 0.94, Sodium Level 141, Potassium Level 4.0, Chloride Level 103, Carbon Dioxide Level 31, Calcium Level 8.7L, Magnesium Level 1.6L 02/05/19 06:45: Bedside Glucose (Misc Panel) 132H CBC/BMP Laboratory Tests 02/05/19 05:42 Calcium Level 8.7 L TINA DUKE MD Feb 05, 2019 08:22
[2019-02-05] MEDS ORDERED: MAG SULF 1GM/100ML (MAG RUN) 1 GM in APPROPRIATE DILUENT 1 EA IV ONE (08:30)
[2019-02-05] MEDS: CLOPIDOGREL 75 MG TAB PO SCH (08:51)
[2019-02-05] MEDS: PANTOPRAZOLE 40MG INJ (PROTONIX) (C9113) IV SCH (08:51)
[2019-02-05] MEDS: FINASTERIDE 5 MG TAB PO SCH (08:51)
[2019-02-05] MEDS: METOPROLOL SUCC (TopROL XL) 100MG *XL* TAB PO SCH ×2 (08:51→21:56)
[2019-02-05] MEDS: HEPARIN SOD (PORCINE) 5000 UNITS/ML VIAL SC SCH ×2 (08:51→21:55)
[2019-02-05] MEDS: DIGOXIN 0.125 MG TAB PO SCH (08:51)
[2019-02-05 09:23] LABS: HEMOGLOBIN 11.5 g/dl (13.5-17.5)
[2019-02-05 14:00] VITALS: BP 137/80
[2019-02-05] MEDS ORDERED: GLUCAGON FOR INJ 1 MG VIAL (J1610) As Ordered ONE (14:44)
[2019-02-05] MEDS ORDERED: VoLumen 0.1% SUSPENSION 450ML BOTTLE As Ordered ONE (14:44)
[2019-02-05] MEDS ORDERED: ISOVUE-370 76% 100ML VIAL (Q9967) As Ordered ONE (14:45)
[2019-02-05 22:00] VITALS: BP 198/98
[2019-02-06] VITALS: BP 150/90
[2019-02-06] MEDS: PIPERACILLIN/TAZOBACTAM SOD 2.25 GM in D5W MINI-BAG PLUS 50 ML IV SCH ×4 (04:53→21:21)
[2019-02-06 06:00] VITALS: BP 131/81
[2019-02-06 06:10] LABS: BASO % 0.3 % (0.0-1.0); EOS # 0.1 10^3/uL (0.0-0.50); EOS % 0.7 % (0.0-3.0); HEMATOCRIT 35.1 % (42.0-52.0); HEMOGLOBIN 11.8 g/dl (13.5-17.5); LYMPH # 1.1 10^3/uL (1.5-4.5); LYMPH % 14.9 % (24.0-44.0); MEAN CORPUSCULAR HEMOGLOBIN 28.4 pg (27.0-33.0); MEAN CORPUSCULAR HGB CONC 33.6 g/dl (32.0-36.5); MEAN CORPUSCULAR VOLUME 84.4 fl (80.0-96.0); MONO # 0.8 10^3/uL (0.0-0.8); MONO % 10.8 % (0.0-5.0); NEUTROPHILS # 5.4 10^3/uL (1.8-7.7); NEUTROPHILS % 72.8 % (36.0-66.0); PLATELET COUNT, AUTOMATED 149 10^3/uL (150-450); RED BLOOD COUNT 4.16 10^6/uL (4.30-6.10); WHITE BLOOD COUNT 7.4 10^3/uL (4.0-10.0)
[2019-02-06 06:38] LABS: BLOOD UREA NITROGEN 6 MG/DL (7-18); CALCIUM LEVEL 8.5 MG/DL (8.8-10.2); CARBON DIOXIDE LEVEL 31 MEQ/L (21-32); CHLORIDE LEVEL 100 MEQ/L (98-107); CREATININE FOR GFR 0.93 MG/DL (0.70-1.30); GLOMERULAR FILTRATION RATE > 60.0 (>35); GLUCOSE, FASTING 158 MG/DL (70-100); MAGNESIUM LEVEL 1.8 MG/DL (1.8-2.4); POTASSIUM SERUM 3.1 MEQ/L (3.5-5.1); SODIUM LEVEL 137 MEQ/L (136-145)
[2019-02-06] MEDS ORDERED: PERCOCET 5MG/325MG TAB PO ONE (08:30)
[2019-02-06] MEDS: HumaLOG INSULIN (NovoLOG) PER UNIT SC SCH ×4 (08:40→21:47)
[2019-02-06] MEDS: PANTOPRAZOLE 40MG INJ (PROTONIX) (C9113) IV SCH (08:41)
[2019-02-06] MEDS: CLOPIDOGREL 75 MG TAB PO SCH (08:41)
[2019-02-06] MEDS: FINASTERIDE 5 MG TAB PO SCH (08:41)
[2019-02-06] MEDS: HEPARIN SOD (PORCINE) 5000 UNITS/ML VIAL SC SCH ×2 (08:41→21:20)
[2019-02-06] MEDS: METOPROLOL SUCC (TopROL XL) 100MG *XL* TAB PO SCH ×2 (08:42→21:19)
[2019-02-06] MEDS: KCL 10MEQ/100ML SWI (KRUN) 10 MEQ in APPROPRIATE DILUENT 1 EA IV SCH ×2 (08:42→09:55)
[2019-02-06] MEDS: DIGOXIN 0.125 MG TAB PO SCH (08:42)
--- NOTE | 2019-02-06 08:51 | REP ---
CT Enterography: With IV and oral contrast. History: Evaluate matted loops of small bowel in the right upper quadrant. Crohn's disease. Comparison study: February 04, 2019 CT study. March 05, 2010 prior study is also reviewed. CT enterography Technique: The patient ingested oral Volumen for PO contrast per protocol. 0.6 mg of intravenous glucagon is administered. 100 ml of Isovue 370 is given intravenously for intravenous contrast. Helical scanning is acquired. Arterial phase and delayed phase imaging was acquired. Thick slab coronal and sagittal MIP images are generated. In addition coronal and sagittal multiplanar re-formation images are generated and reviewed along with axial images. CT enterography findings: Preliminary digital blood bank coordinator radiograph demonstrates mild gaseous distension of the colon. There are several large and small bowel air-fluid levels visible on the cross-table lateral projection. Orally administered positive contrast from the previous day's CT study is predominately in the colon. Negative contrast from CT enterography is seen distributed in the small bowel. There is no evidence of pleural effusion but there is a small amount of ascites in the pelvic reflections again noted. The gallbladder and appendix are surgically absent. The patient relates a previous colon resection. There are multiple surgical clips along the right lateral abdomen suggesting that this is a previous right colon resection. There is a persistent small bowel obstruction pattern with mildly to moderately dilated jejunal loops in the left mid abdomen, central abdomen and pelvis. There is no evidence of free air. There is some interloop ascitic fluid. The pattern of slightly matted appearing small bowel loops in the right mid abdomen seen on yesterday's CT is again noted. These loops are not dilated suggesting a point of transition in the distal small intestine with some degree of obstruction, partial. There are a few prominent mesenteric lymph nodes in the region. The largest of these measures 2.4 x 1.9 cm in greatest diameter. This is a new finding compared with the 2010 study. This may be reactive or neoplastic adenopathy. No abscess is appreciated. There is some nodular bowel wall thickening and enhancement in these matted loops which may reflect Crohn's enteritis. Mild mesenteric adenopathy is compatible with Crohn's enteritis as well. No abdominal wall defect is seen. Impression: Partial small bowel obstruction apparently due to a somewhat matted process affecting mid small bowel loops. This is associated with nodular mural thickening and some increased adenopathy compared to the 2009 prior study. There is mild ascites but no free air. Possibilities include Crohn's enteropathy as well as malignancy such as adenocarcinoma and/or carcinoid. Electronically Signed by Abhinav Shelley MD 02/06/2019 08:56 A
--- NOTE | 2019-02-06 09:10 | IPNPDOC ---
Subjective General Date/Time Seen The patient was seen on 02/06/19 at 09:06. Subject Chief Complaint/History The patient is a 88-year-old male admitted with a reason for visit of Crohn's Disease,Small Bowel Obstruction. Patient reports his epigastric discomfort has returned this morning, improved with Percocet. He denies a nausea or vomiting. He had about 8 loose bowel movements yesterday Current Medications Current Medications Current Medications Medications (Trade) Dose Ordered Sig/Adrien Route PRN Reason Start Time Stop Time Status Last Admin Dose Admin Clopidogrel Bisulfate (PLAVix) 75 mg DAILY PO 02/05/19 09:00 02/06/19 08:41 Dextrose (Dextrose 50%) 25 ml ASDIRECTED PRN IV SEE LABEL COMMENTS 02/04/19 14:15 Diatrizoate Meglum/ Diatrizoate Sod (Gastrografin) 10 ml Q30M PO 02/04/19 08:45 02/04/19 09:16 DC 02/04/19 09:15 Digoxin (Lanoxin) 0.125 mg DAILY PO 02/05/19 09:00 02/06/19 08:42 Finasteride (Proscar) 5 mg DAILY PO 02/05/19 09:00 02/06/19 08:41 Glucagon (Glucagon) 1 mg ASDIRECTED PRN SC SEE LABEL COMMENTS 02/04/19 14:15 Glucose (Glucose) 16 GM ASDIRECTED PRN PO SEE LABEL COMMENTS 02/04/19 14:15 Heparin Sodium (Porcine) (Heparin) 5,000 units Q12H SC 02/04/19 21:00 02/06/19 08:41 Home Med (Med Rec Complete!) ASDIRECTED XX 02/04/19 14:15 02/04/19 14:15 DC Insulin Human Lispro (HumaLOG INSULIN) See Protocol Table AC SC 02/05/19 12:00 02/06/19 08:40 Insulin Human Lispro (HumaLOG INSULIN) See Protocol Table Q6H SC 02/04/19 18:00 02/05/19 11:22 DC 02/05/19 06:50 Insulin Human Lispro (HumaLOG INSULIN) See Protocol Table QHS SC 02/04/19 21:00 02/04/19 21:00 DC Insulin Human Lispro (HumaLOG INSULIN) See Protocol Table QHS SC 02/05/19 21:00 Metoprolol Succinate (TopROL XL) 100 mg BID PO 02/04/19 21:00 02/06/19 08:42 Metoprolol Tartrate (Lopressor) 100 mg BID PO 02/04/19 21:00 02/04/19 21:00 DC Morphine Sulfate (Morphine Sulfate Inj) 2 mg Q30M PRN IV MODERATE PAIN (PS 5-7) 02/04/19 07:15 02/04/19 14:56 DC 02/04/19 07:27 Morphine Sulfate (Morphine Sulfate Inj) 2 mg Q4HP PRN IV PAIN 02/04/19 14:15 Ondansetron HCl (ZOFRAN INJection) 4 mg Q6HP PRN IV NAUSEA OR VOMITING 02/04/19 14:15 Pantoprazole Sodium (Protonix) 40 mg Q24H IV 02/04/19 09:00 02/06/19 08:41 Piperacillin Sod/ Tazobactam Sod 2.25 gm/Dextrose 50 ml @ 100 mls/hr Q6H IV 02/04/19 16:00 02/06/19 04:53 Piperacillin Sod/ Tazobactam Sod 3.375 gm/Dextrose 50 ml @ 50 mls/hr Q6H IV 02/04/19 15:00 02/04/19 15:00 DC Potassium Chloride 10 meq/ IV Miscellaneous Supplies 100 ml @ 100 mls/hr Q1H IV 02/06/19 09:00 02/06/19 10:59 02/06/19 08:42 Potassium Chloride/Sodium Chloride 1,000 ml @ 100 mls/hr Q10H IV 02/04/19 14:42 02/05/19 08:18 DC 02/05/19 00:15 Sodium Chloride 1,000 ml @ 75 mls/hr [id number] IV 02/04/19 14:15 02/04/19 14:44 DC Sodium Chloride 1,000 ml @ 100 mls/hr Q10H IV 02/04/19 07:11 02/04/19 13:25 DC 02/04/19 07:24 Sodium Chloride 1,000 ml @ 150 mls/hr Q6H40M IV 02/04/19 13:30 02/04/19 14:44 DC Allergies Coded Allergies: No Known Allergies (Verified , 02/04/19) Objective Physical Examination Examination GENERAL APPEARANCE: Sitting up on the chair, relatively comfortable. SKIN: Warm and dry. HEENT: Normocephalic, atraumatic. [place] palpebral conjunctiva, anicteric sclerae. Lips and mucosa appear moist. NECK: Supple, no thyromegaly. No obvious jugular venous distention. LUNGS: Clear to auscultation bilaterally. No wheezing appreciated. HEART: No chest wall abnormalities. Regular rate and rhythm with no murmurs appreciated. ABDOMEN: Abdomen is looks moderately distended, soft, minimal tenderness on direct palpation over the epigastric and slightly at the right paramedian area no rebound or guarding. EXTREMITIES: Extremities have no deformities. No edema identified. Vital Signs Vital Signs Date Time Temp Pulse Resp B/P (MAP) Pulse Ox O2 Delivery O2 Flow Rate FiO2 02/06/19 08:42 77 126/78 02/06/19 08:41 18 02/06/19 06:00 97.3 97 02/04/19 15:00 Room Air I&Os I&O- Last 24 Hours up to 6 AM 02/06/19 06:00 Intake Total 1850 ml Output Total 850 ml Balance 1000 ml Laboratory Data Labs 24H Laboratory Tests 2 02/05/19 11:23: Bedside Glucose (Misc Panel) 225H 02/05/19 17:23: Bedside Glucose (Misc Panel) 206H 02/05/19 21:00: Bedside Glucose (Misc Panel) 94 02/06/19 05:24: Immature Granulocyte % (Auto) 0.5, White Blood Count 7.4, Red Blood Count 4.16L, Hemoglobin 11.8L, Hematocrit 35.1L, Mean Corpuscular Volume 84.4, Mean Corpuscular Hemoglobin 28.4, Mean Corpuscular Hemoglobin Concent 33.6, Red Cell Distribution Width 15.4H, Platelet Count 149L, Neutrophils (%) (Auto) 72.8H, Lymphocytes (%) (Auto) 14.9L, Monocytes (%) (Auto) 10.8H, Eosinophils (%) (Auto) 0.7, Basophils (%) (Auto) 0.3, Neutrophils # (Auto) 5.4, Lymphocytes # (Auto) 1.1L, Monocytes # (Auto) 0.8, Eosinophils # (Auto) 0.1, Basophils # (Auto) 0.0, Nucleated Red Blood Cells % (auto) 0.0, Anion Gap 6L, Glomerular Filtration Rate > 60.0, Blood Urea Nitrogen 6L, Creatinine 0.93, Sodium Level 137, Potassium Level 3.1#L, Chloride Level 100, Carbon Dioxide Level 31, Calcium Level 8.5L, Magnesium Level 1.8 CBC/BMP Laboratory Tests 02/06/19 05:24 Red Blood Count 4.16 L, Mean Corpuscular Volume 84.4, Mean Corpuscular Hemog lobin 28.4, Mean Corpuscular Hemoglobin Concent 33.6, Red Cell Distribution Width 15.4 H, Neutrophils (%) (Auto) 72.8 H, Lymphocytes (%) (Auto) 14.9 L, Monocytes (%) (Auto) 10.8 H, Eosinophils (%) (Auto) 0.7, Basophils (%) (Auto) 0.3, Neutrophils # (Auto) 5.4, Lymphocytes # (Auto) 1.1 L, Monocytes # (Auto) 0.8, Eosinophils # (Auto) 0.1, Basophils # (Auto) 0.0, Calcium Level 8.[address] enterography Partial small bowel obstruction apparently due to a somewhat matted process affecting mid small bowel loops. This is associated with nodular mural thickening and some increased adenopathy compared to the 2010 prior study. There is mild ascites but no free air. Possibilities include Crohn's enteropathy as well as malignancy such as adenocarcinoma and/or carcinoid. Impression Crohn's disease, long-standing inadequately treated Partial small bowel obstruction pattern Abnormal CT with matted loops of bowel over the right upper quadrant area which may be the source of obstruction, stricture, fistulization versus malignancy At this point suggested treat the Crohn's disease and see how he responds over the weekend. Suggest gastroenterology consult. Depending on clinical response, patients wishes may need reimaging versus diagnostic laparoscopy/laparotomy. Problem is baseline he has congestive heart failure with decreased ejection fraction looks mildly compensated at this point. Will need a thorough outlook of his cardiac status to determine if we can handle him here or will need to transfer him to a tertiary center if surgery is considered. If tolerated continue with clear liquids and advanced gradually. Plan / VTE VTE Prophylaxis Ordered?: Yes JORGITO VALLE MD Feb 06, 2019 09:10
--- NOTE | 2019-02-06 11:40 | IPNPDOC ---
Subjective Date Seen The patient was seen on 02/06/19. Subjective Chief Complaint/HPI Again complains of abdominal pain and says the upper part of the abdomen is hard. He also had 7 to 8 waterry stools overnight. No fever or chills, no chest pain or sob, no vomiting or nausea. Objective Physical Examination General Exam: Positive: Alert, Cooperative, No Acute Distress Eye Exam: Positive: PERRLA, Conjunctiva & lids normal, EOMI; Negative: Sclera icteric ENT Exam: Positive: Atraumatic, Mucous membr. moist/pink, Pharynx Normal Neck Exam: Positive: Supple; Negative: JVD, thyromegaly Chest Exam: Positive: Clear to auscultation, Normal air movement Heart Exam: Positive: Rate Normal, Irregular Rhythm, Normal S1, Normal S2; Negative: Gallops, Murmurs, Rubs Telemetry: Positive: Atrial fibrillation Abdomen Exam: Positive: BS Hyperactive, Tenderness, Other (no guarding or rigidity present) Extremity Exam: Negative: Clubbing, Cyanosis, Edema Skin Exam: Positive: Nl turgor and temperature; Negative: Breakdown, Lesion Psych Exam: Positive: Memory Intact, Oriented x 3 Assessment /Plan Assessment Patient is an 88-year-old male with past medical history of Systolic CHF with EF of 20 to 25%, ischemic cardiomyopathy, Severe pulmonary hypertension with right heart failure, Afib on Eliquis, HTN, Crohn's disease, HLD, BPH, DM presented to the ER with complaints of upper Abdominal pain for 4 days with 7 to 8 watery stool since last night. CT abdomen showed either an early small bowel obstruction which may be partial versus a small bowel ileus. This is seen in conjunction with matted appearing small bowel loops in the right upper quadrant could not rule out the possibility of a right upper quadrant abscess. The bowel loops in that area are noncontrast opacified or poorly contrast opacified severely limiting evaluation of them. No free fluid is seen in the abdomen, however, small amount of fluid trapped in the small bowel mesentery adjacent to this almost phlegmonous appearing mesentery cannot be ruled out. Patient admitted for Partial SBO / Ileus with the possibility of RUQ abscess. Partial SBO/ Ileus with possible RUQ abscess again with pain and diarrhea overnight , No change from admission tolerating clear liquids. continue zosyn there is concern for Crohn's entropathy vs malignancy. CT enterography showed Partial small bowel obstruction apparently due to a somewhat matted process affecting mid small bowel loops. This is associated with nodular mural thickening and some increased adenopathy compared to the 2010 prior study. There is mild ascites but no free air. Possibilities include Crohn's enteropathy as well as malignancy such as adenocarcinoma and/or carcinoid will follow surgical recommendations. will also consult GI. Possible Crohn's disease flare will start steroids continue zosyn continue mesalamine will consult GI when available. Hypokalemia replaced Hypomagnesemia replaced. Elevated lipase this is probably for the small bowel i do not think patient has pancreatitis as Pancreas i CT looks OK. Diabetes will hold metformin and januvia place on lispro HS scale q 6 hours. FS q 6 hours Chronic Afib rate controlled continue metoprolol and digoxin. hold eliquis Systolic CHF with severe pulmonary hypertension and right heart failure due to left heart failure. due to ischemic cardimyopathy patient is euvolemic will hold lasix and indapamide BPH continue finasteride Plan/VTE VTE Prophylaxis Ordered?: Yes VS, I&O, 24H, Fishbone Vital Signs/I&O Vital Signs Date Time Temp Pulse Resp B/P (MAP) Pulse Ox O2 Delivery O2 Flow Rate FiO2 02/06/19 09:11 17 02/06/19 08:42 77 126/78 02/06/19 06:00 97.3 97 02/04/19 15:00 Room Air I&O- Last 24 Hours up to 6 AM 02/06/19 06:00 Intake Total 1850 ml Output Total 850 ml Balance 1000 ml Laboratory Data 24H LABS Laboratory Tests 2 02/05/19 17:23: Bedside Glucose (Misc Panel) 206H 02/05/19 21:00: Bedside Glucose (Misc Panel) 94 02/06/19 05:24: Immature Granulocyte % (Auto) 0.5, White Blood Count 7.4, Red Blood Count 4.16L, Hemoglobin 11.8L, Hematocrit 35.1L, Mean Corpuscular Volume 84.4, Mean Corpuscular Hemoglobin 28.4, Mean Corpuscular Hemoglobin Concent 33.6, Red Cell Distribution Width 15.4H, Platelet Count 149L, Neutrophils (%) (Auto) 72.8H, Ly mphocytes (%) (Auto) 14.9L, Monocytes (%) (Auto) 10.8H, Eosinophils (%) (Auto) 0.7, Basophils (%) (Auto) 0.3, Neutrophils # (Auto) 5.4, Lymphocytes # (Auto) 1.1L, Monocytes # (Auto) 0.8, Eosinophils # (Auto) 0.1, Basophils # (Auto) 0.0, Nucleated Red Blood Cells % (auto) 0.0, Anion Gap 6L, Glomerular Filtration Rate > 60.0, Blood Urea Nitrogen 6L, Creatinine 0.93, Sodium Level 137, Potassium Level 3.1#L, Chloride Level 100, Carbon Dioxide Level 31, Calcium Level 8.5L, Magnesium Level 1.8 02/06/19 11:19: Bedside Glucose (Misc Panel) 144H CBC/BMP Laboratory Tests 02/06/19 05:24 Red Blood Count 4.16 L, Mean Corpuscular Volume 84.4, Mean Corpuscular Hemo globin 28.4, Mean Corpuscular Hemoglobin Concent 33.6, Red Cell Distribution Width 15.4 H, Neutrophils (%) (Auto) 72.8 H, Lymphocytes (%) (Auto) 14.9 L, Monocytes (%) (Auto) 10.8 H, Eosinophils (%) (Auto) 0.7, Basophils (%) (Auto) 0.3, Neutrophils # (Auto) 5.4, Lymphocytes # (Auto) 1.1 L, Monocytes # (Auto) 0.8, Eosinophils # (Auto) 0.1, Basophils # (Auto) 0.0, Calcium Level 8.5 L TINA DUKE MD Feb 06, 2019 11:39
[2019-02-06] MEDS: methylPREDNISolone INJ 40 MG/1 ML VIAL (J2920) IV SCH ×2 (12:26→21:21)
[2019-02-06 14:00] VITALS: BP 136/76
[2019-02-06] MEDS: PERCOCET 5MG/325MG TAB PO PRN ×2 (15:31→21:47)
[2019-02-06 22:00] VITALS: BP 124/74
[2019-02-07] MEDS: PIPERACILLIN/TAZOBACTAM SOD 2.25 GM in D5W MINI-BAG PLUS 50 ML IV SCH ×4 (05:11→22:08)
[2019-02-07 06:00] VITALS: BP 152/83
[2019-02-07 07:30] LABS: BASO % 0.1 % (0.0-1.0); HEMATOCRIT 36.1 % (42.0-52.0); LYMPH % 14.4 % (24.0-44.0); MEAN CORPUSCULAR HGB CONC 33.2 g/dl (32.0-36.5); MEAN CORPUSCULAR VOLUME 87.2 fl (80.0-96.0); MONO # 0.5 10^3/uL (0.0-0.8); MONO % 7.2 % (0.0-5.0); NEUTROPHILS # 5.5 10^3/uL (1.8-7.7); NEUTROPHILS % 77.7 % (36.0-66.0); PLATELET COUNT, AUTOMATED 158 10^3/uL (150-450); RED BLOOD COUNT 4.14 10^6/uL (4.30-6.10); WHITE BLOOD COUNT 7.1 10^3/uL (4.0-10.0)
[2019-02-07 07:54] LABS: BLOOD UREA NITROGEN 4 MG/DL (7-18); CALCIUM LEVEL 8.5 MG/DL (8.8-10.2); CARBON DIOXIDE LEVEL 30 MEQ/L (21-32); CHLORIDE LEVEL 104 MEQ/L (98-107); CREATININE FOR GFR 1.03 MG/DL (0.70-1.30); GLOMERULAR FILTRATION RATE > 60.0 (>35); GLUCOSE, FASTING 162 MG/DL (70-100); MAGNESIUM LEVEL 1.7 MG/DL (1.8-2.4); POTASSIUM SERUM 3.9 MEQ/L (3.5-5.1); SODIUM LEVEL 140 MEQ/L (136-145)
[2019-02-07] MEDS ORDERED: MESALAMINE 250 MG CR CAP PO SCH (09:00)
[2019-02-07] MEDS: FINASTERIDE 5 MG TAB PO SCH (09:33)
[2019-02-07] MEDS: ATORVASTATIN 20 MG TAB PO SCH (09:33)
[2019-02-07] MEDS: HumaLOG INSULIN (NovoLOG) PER UNIT SC SCH ×5 (09:33→21:00)
[2019-02-07] MEDS: HEPARIN SOD (PORCINE) 5000 UNITS/ML VIAL SC SCH ×2 (09:34→22:06)
[2019-02-07] MEDS: CLOPIDOGREL 75 MG TAB PO SCH (09:34)
[2019-02-07] MEDS: PANTOPRAZOLE 40MG INJ (PROTONIX) (C9113) IV SCH (09:34)
[2019-02-07] MEDS: METOPROLOL SUCC (TopROL XL) 100MG *XL* TAB PO SCH ×2 (09:34→22:07)
[2019-02-07] MEDS: DIGOXIN 0.125 MG TAB PO SCH (09:35)
[2019-02-07] MEDS: methylPREDNISolone INJ 40 MG/1 ML VIAL (J2920) IV SCH ×2 (09:41→22:05)
[2019-02-07 14:00] VITALS: BP 150/82
[2019-02-07] MEDS ORDERED: MAG SULF 1GM/100ML (MAG RUN) 1 GM in APPROPRIATE DILUENT 1 EA IV ONE (16:00)
[2019-02-07 22:00] VITALS: BP 145/74
[2019-02-07] MEDS: sulfaSALAzine 500 MG TABEC PO SCH (22:11)
[2019-02-07] MEDS: PERCOCET 5MG/325MG TAB PO PRN (22:12)
[2019-02-08] MEDS: PIPERACILLIN/TAZOBACTAM SOD 2.25 GM in D5W MINI-BAG PLUS 50 ML IV SCH ×4 (04:51→21:30)
[2019-02-08 06:00] VITALS: BP 144/70
[2019-02-08 06:25] LABS: BASO % 0.2 % (0.0-1.0); HEMATOCRIT 31.7 % (42.0-52.0); HEMOGLOBIN 10.3 g/dl (13.5-17.5); LYMPH # 0.8 10^3/uL (1.5-4.5); LYMPH % 14.2 % (24.0-44.0); MEAN CORPUSCULAR HEMOGLOBIN 28.1 pg (27.0-33.0); MEAN CORPUSCULAR HGB CONC 32.5 g/dl (32.0-36.5); MEAN CORPUSCULAR VOLUME 86.4 fl (80.0-96.0); MONO # 0.3 10^3/uL (0.0-0.8); MONO % 4.3 % (0.0-5.0); NEUTROPHILS # 4.7 10^3/uL (1.8-7.7); NEUTROPHILS % 80.6 % (36.0-66.0); PLATELET COUNT, AUTOMATED 124 10^3/uL (150-450); RED BLOOD COUNT 3.67 10^6/uL (4.30-6.10); WHITE BLOOD COUNT 5.9 10^3/uL (4.0-10.0)
[2019-02-08 06:53] LABS: BLOOD UREA NITROGEN 6 MG/DL (7-18); CARBON DIOXIDE LEVEL 29 MEQ/L (21-32); CHLORIDE LEVEL 108 MEQ/L (98-107); GLOMERULAR FILTRATION RATE > 60.0 (>35); GLUCOSE, FASTING 162 MG/DL (70-100); POTASSIUM SERUM 3.7 MEQ/L (3.5-5.1); SODIUM LEVEL 142 MEQ/L (136-145)
[2019-02-08] MEDS: methylPREDNISolone INJ 40 MG/1 ML VIAL (J2920) IV SCH ×2 (08:53→21:29)
[2019-02-08] MEDS: HumaLOG INSULIN (NovoLOG) PER UNIT SC SCH ×4 (08:53→21:00)
[2019-02-08] MEDS: sulfaSALAzine 500 MG TABEC PO SCH ×4 (08:54→21:28)
[2019-02-08] MEDS: PANTOPRAZOLE 40MG INJ (PROTONIX) (C9113) IV SCH (08:54)
[2019-02-08] MEDS: FINASTERIDE 5 MG TAB PO SCH (08:54)
[2019-02-08] MEDS: CLOPIDOGREL 75 MG TAB PO SCH (08:54)
[2019-02-08] MEDS: ATORVASTATIN 20 MG TAB PO SCH (08:54)
[2019-02-08] MEDS: HEPARIN SOD (PORCINE) 5000 UNITS/ML VIAL SC SCH ×2 (08:54→21:29)
[2019-02-08] MEDS: DIGOXIN 0.125 MG TAB PO SCH (08:55)
[2019-02-08] MEDS: METOPROLOL SUCC (TopROL XL) 100MG *XL* TAB PO SCH ×2 (08:55→21:29)
--- NOTE | 2019-02-08 12:35 | IPNPDOC ---
Subjective Date Seen The patient was seen on 02/07/19. Subjective Chief Complaint/HPI No bowel movement over night, still continues to have upper upper abdominal pain extending from the right to left like a band. No fever or chills, tolerating clears, no nausea or vomiting. Objective Physical Examination General Exam: Positive: Alert, Cooperative, No Acute Distress Eye Exam: Positive: PERRLA, Conjunctiva & lids normal, EOMI; Negative: Sclera icteric ENT Exam: Positive: Atraumatic, Mucous membr. moist/pink, Pharynx Normal Neck Exam: Positive: Supple; Negative: JVD, thyromegaly Chest Exam: Positive: Clear to auscultation, Normal air movement Heart Exam: Positive: Rate Normal, Irregular Rhythm, Normal S1, Normal S2; Negative: Gallops, Murmurs, Rubs Telemetry: Positive: Atrial fibrillation Abdomen Exam: Positive: BS Hyperactive, Tenderness, Other (no guarding or rigidity present) Extremity Exam: Negative: Clubbing, Cyanosis, Edema Skin Exam: Positive: Nl turgor and temperature; Negative: Breakdown, Lesion Psych Exam: Positive: Memory Intact, Oriented x 3 Assessment /Plan Assessment Patient is an 88-year-old male with past medical history of Systolic CHF with EF of 20 to 25%, ischemic cardiomyopathy, Severe pulmonary hypertension with right heart failure, Afib on Eliquis, HTN, Crohn's disease, HLD, BPH, DM presented to the ER with complaints of upper Abdominal pain for 4 days with 7 to 8 watery stool since last night. CT abdomen showed either an early small bowel obstruction which may be partial versus a small bowel ileus. This is seen in conjunction with matted appearing small bowel loops in the right upper quadrant could not rule out the possibility of a right upper quadrant abscess. The bowel loops in that area are noncontrast opacified or poorly contrast opacified s everely limiting evaluation of them. No free fluid is seen in the abdomen, however, small amount of fluid trapped in the small bowel mesentery adjacent to this almost phlegmonous appearing mesentery cannot be ruled out. Patient admitted for Partial SBO / Ileus with the possibility of RUQ abscess. Partial SBO with matted small bowel loops. due to complication of Crohn's / malignancy tolerating clear liquids. continue zosyn there is concern for Crohn's entropathy vs malignancy. CT enterography showed Partial small bowel obstruction apparently due to a somewhat matted process affecting mid small bowel loops. This is associated with nodular mural thickening and some increased adenopathy compared to the 2010 prior study. There is mild ascites but no free air. Possibilities include Crohn's enteropathy as well as malignancy such as adenocarcinoma and/or carcinoid will follow surgical recommendations. As per surgery if patient's symptoms do not improve may need surgical intervention. will discuss with cardio patient's surgical risk stratification will also consult GI. Possible Crohn's disease flare will start steroids continue zosyn will consult GI when available. Hypokalemia replaced Hypomagnesemia replaced. Diabetes will hold metformin and januvia place on lispro HS scale q 6 hours. FS q 6 hours Chronic Afib rate controlled continue metoprolol and digoxin. hold eliquis Systolic CHF with severe pulmonary hypertension and right heart failure due to left heart failure. due to ischemic cardimyopathy patient is euvolemic will hold lasix and indapamide and also lisinopril. BPH continue finasteride Plan/VTE VTE Prophylaxis Ordered?: Yes VS, I&O, 24H, Fishbone Vital Signs/I&O Vital Signs Date Time Temp Pulse Resp B/P (MAP) Pulse Ox O2 Delivery O2 Flow Rate FiO2 02/06/19 22:17 18 02/06/19 22:00 96.8 68 124/74 (91) 99 02/04/19 15:00 Room Air I&O- Last 24 Hours up to 6 AM 02/07/19 06:00 Intake Total 740 ml Balance 740 ml Laboratory Data 24H LABS Laboratory Tests 2 02/06/19 11:19: Bedside Glucose (Misc Panel) 144H 02/06/19 16:29: Bedside Glucose (Misc Panel) 248H 02/06/19 19:52: Bedside Glucose (Misc Panel) 278H Microbiology Microbiology 02/06/19 Gastrointestinal Tract Panel (PCR) - Final, Complete TINA DUKE MD Feb 07, 2019 06:51
--- NOTE | 2019-02-08 13:26 | IPNPDOC ---
Subjective Date Seen The patient was seen on 02/08/19. Subjective Chief Complaint/HPI Says his abdomen is feeling much better, still have watery diarrhea but the pain is better . Says his abdomen now feels soft as usual. He did need 2 pain meds yesterday. Tolerating full liquids. Objective Physical Examination General Exam: Positive: Alert, Cooperative, No Acute Distress Eye Exam: Positive: PERRLA, Conjunctiva & lids normal, EOMI; Negative: Sclera icteric ENT Exam: Positive: Atraumatic, Mucous membr. moist/pink, Pharynx Normal Neck Exam: Positive: Supple; Negative: JVD, thyromegaly Chest Exam: Positive: Clear to auscultation, Normal air movement Heart Exam: Positive: Rate Normal, Irregular Rhythm, Normal S1, Normal S2; Negative: Gallops, Murmurs, Rubs Telemetry: Positive: Atrial fibrillation Abdomen Exam: Positive: Normal bowel sounds, Soft, Other (no guarding or rigidity present) Extremity Exam: Negative: Clubbing, Cyanosis, Edema Skin Exam: Positive: Nl turgor and temperature; Negative: Breakdown, Lesion Psych Exam: Positive: Memory Intact, Oriented x 3 Assessment /Plan Assessment Patient is an 88-year-old male with past medical history of Systolic CHF with EF of 20 to 25%, ischemic cardiomyopathy, Severe pulmonary hypertension with right heart failure, Afib on Eliquis, HTN, Crohn's disease, HLD, BPH, DM presented to the ER with complaints of upper Abdominal pain for 4 days with 7 to 8 watery sto ol since last night. CT abdomen showed either an early small bowel obstruction which may be partial versus a small bowel ileus. This is seen in conjunction with matted appearing small bowel loops in the right upper quadrant could not rule out the possibility of a right upper quadrant abscess. The bowel loops in that area are noncontrast opacified or poorly contrast opacified severely limiting evaluation of them. No free fluid is seen in the abdomen, however, small amount of fluid trapped in the small bowel mesentery adjacent to this almost phlegmonous appearing mesentery cannot be ruled out. Patient admitted for Partial SBO / Ileus with the possibility of RUQ abscess. Partial SBO with matted small bowel loops. there is concern for Crohn's entropathy vs malignancy. symptoms seems to be improving, advanced diet to full liquids. CT enterography showed Partial small bowel obstruction apparently due to a somewhat matted process affecting mid small bowel loops. This is associated with nodular mural thickening and some increased adenopathy compared to the 2010 prior study. There is mild ascites but no free air. Possibilities include Crohn's enteropathy as well as malignancy such as adenocarcinoma and/or carcinoid will follow surgical recommendations. As per surgery if patient's symptoms do not improve may need surgical intervention. will discuss with cardio patient's surgical risk stratification will also consult GI. Possible Crohn's disease flare steroids, continue zosyn , continue sulfasalazine will consult GI when available. Hypokalemia replaced Hypomagnesemia replaced. Diabetes will hold metformin and januvia on lispro sliding scale FS AC ans HS Chronic Afib rate controlled continue metoprolol and digoxin. hold eliquis Systolic CHF with severe pulmonary hypertension and right heart failure due to left heart failure. due to ischemic cardimyopathy patient is is in positive balance lucius restart indapamide continue to hold lisinopril BPH continue finasteride Plan/VTE VTE Prophylaxis Ordered?: Yes VS, I&O, 24H, [facility] Vital Signs/I&O Vital Signs Date Time Temp Pulse Resp B/P (MAP) Pulse Ox O2 Delivery O2 Flow Rate FiO2 02/08/19 08:55 61 144/70 02/08/19 06:00 96.8 20 95 02/04/19 15:00 Room Air I&O- Last 24 Hours up to 6 AM 02/08/19 06:00 Intake Total 2563 ml Output Total 175 ml Balance 2388 ml Laboratory Data 24H LABS Laboratory Tests 2 02/07/19 16:50: Bedside Glucose (Misc Panel) 206H 02/07/19 21:57: Bedside Glucose (Misc Panel) 121H 02/08/19 05:13: Immature Granulocyte % (Auto) 0.7, White Blood Count 5.9, Red Blood Count 3.67L, Hemoglobin 10.3L, Hematocrit 31.7L, Mean Corpuscular Volume 86.4, Mean Corpuscular Hemoglobin 28.1, Mean Corpuscular Hemoglobin Concent 32.5, Red Cell Distribution Width 15.4H, Platelet Count 124L, Neutrophils (%) (Auto) 80.6H, Lymphocytes (%) (Auto) 14.2L, Monocytes (%) (Auto) 4.3, Eosinophils (%) (Auto) 0.0, Basophils (%) (Auto) 0.2, Neutrophils # (Auto) 4.7, Lymphocytes # (Auto) 0.8L, Monocytes # (Auto) 0.3, Eosinophils # (Auto) 0.0, Basophils # (Auto) 0.0, Nucleated Red Blood Cells % (auto) 0.0, Anion Gap 5L, Glomerular Filtration Rate > 60.0, Blood Urea Nitrogen 6L, Creatinine 0.90, Sodium Level 142, Potassium Level 3.7, Chloride Level 108H, Carbon Dioxide Level 29, Calcium Level 8.0L, Magnesium Level 2.0 02/08/19 11:20: Bedside Glucose (Misc Panel) 232H CBC/BMP Laboratory Tests 02/08/19 05:13 Red Blood Count 3.67 L, Mean Corpuscular Volume 86.4, Mean Corpuscular Hemoglobin 28.1, Mean Corpuscular Hemoglobin Concent 32.5, Red Cell Distribution Width 15.4 H, Neutrophils (%) (Auto) 80.6 H, Lymphocytes (%) (Auto) 14.2 L, Monocytes (%) (Auto) 4.3, Eosinophils (%) (Auto) 0.0, Basophils (%) (Auto) 0.2, Neutrophils # (Auto) 4.7, Lymphocytes # (Auto) 0.8 L, Monocytes # (Auto) 0.3, Eosinophils # (Auto) 0.0, Basophils # (Auto) 0.0, Calcium Level 8.0 L Microbiology Microbiology 02/06/19 Gastrointestinal Tract Panel (PCR) - Final, Complete TINA DUKE MD Feb 08, 2019 13:26
[2019-02-08 13:59] VITALS: BP 144/70
[2019-02-08] MEDS: INDAPAMIDE 1.25MG TABLET PO SCH (15:01)
[2019-02-08] MEDS: PERCOCET 5MG/325MG TAB PO PRN (21:30)
[2019-02-08 22:00] VITALS: BP 153/82
[2019-02-09] VITALS (18 sets, daily range): BP systolic 151–230; BP diastolic 79–131
[2019-02-09] MEDS: PIPERACILLIN/TAZOBACTAM SOD 2.25 GM in D5W MINI-BAG PLUS 50 ML IV SCH ×3 (04:53→16:47)
[2019-02-09 06:12] LABS: BASO % 0.1 % (0.0-1.0); HEMATOCRIT 32.5 % (42.0-52.0); HEMOGLOBIN 10.5 g/dl (13.5-17.5); MEAN CORPUSCULAR HEMOGLOBIN 27.8 pg (27.0-33.0); MEAN CORPUSCULAR HGB CONC 32.3 g/dl (32.0-36.5); MONO # 0.3 10^3/uL (0.0-0.8); MONO % 4.1 % (0.0-5.0); NEUTROPHILS # 5.6 10^3/uL (1.8-7.7); NEUTROPHILS % 81.4 % (36.0-66.0); PLATELET COUNT, AUTOMATED 126 10^3/uL (150-450); RED BLOOD COUNT 3.78 10^6/uL (4.30-6.10); WHITE BLOOD COUNT 6.9 10^3/uL (4.0-10.0)
[2019-02-09 06:35] LABS: BLOOD UREA NITROGEN 9 MG/DL (7-18); CALCIUM LEVEL 8.4 MG/DL (8.8-10.2); CARBON DIOXIDE LEVEL 30 MEQ/L (21-32); CHLORIDE LEVEL 110 MEQ/L (98-107); CREATININE FOR GFR 0.94 MG/DL (0.70-1.30); GLOMERULAR FILTRATION RATE > 60.0 (>35); GLUCOSE, FASTING 177 MG/DL (70-100); MAGNESIUM LEVEL 1.9 MG/DL (1.8-2.4); POTASSIUM SERUM 3.8 MEQ/L (3.5-5.1); SODIUM LEVEL 147 MEQ/L (136-145)
[2019-02-09] MEDS: PANTOPRAZOLE 40MG INJ (PROTONIX) (C9113) IV SCH (08:32)
[2019-02-09] MEDS: ATORVASTATIN 20 MG TAB PO SCH (08:33)
[2019-02-09] MEDS: HEPARIN SOD (PORCINE) 5000 UNITS/ML VIAL SC SCH (08:33)
[2019-02-09] MEDS: sulfaSALAzine 500 MG TABEC PO SCH ×4 (08:33→21:00)
[2019-02-09] MEDS: FINASTERIDE 5 MG TAB PO SCH (08:33)
[2019-02-09] MEDS: METOPROLOL SUCC (TopROL XL) 100MG *XL* TAB PO SCH (08:33)
[2019-02-09] MEDS: CLOPIDOGREL 75 MG TAB PO SCH (08:34)
[2019-02-09] MEDS: INDAPAMIDE 1.25MG TABLET PO SCH (08:34)
[2019-02-09] MEDS: HumaLOG INSULIN (NovoLOG) PER UNIT SC SCH ×3 (08:34→17:30)
[2019-02-09] MEDS: DIGOXIN 0.125 MG TAB PO SCH (08:34)
[2019-02-09] MEDS: methylPREDNISolone INJ 40 MG/1 ML VIAL (J2920) IV SCH (08:35)
[2019-02-09] MEDS ORDERED: LISINOPRIL 20 MG TAB PO SCH (09:00)
[2019-02-09] MEDS ORDERED: APIXABAN 5 MG TAB (ELIQUIS) PO SCH (09:00)
--- NOTE | 2019-02-09 10:15 | IPNPDOC ---
Subjective General Date/Time Seen The patient was seen on 02/09/19 at 10:11. Subject Chief Complaint/History The patient is a 88-year-old male admitted with a reason for visit of Crohn's Disease,Small Bowel Obstruction. Patient appears to have improved clinically over the weekend. His abdomen is soft and he still longer complaining of any abdominal discomfort. He still is having some loose stools but no fevers or chills reported. He is tolerating full liquids. He denies any nausea, bloating, vomiting. Current Medications Current Medications Current Medications Medications (Trade) Dose Ordered Sig/Adrien Route PRN Reason Start Time Stop Time Status Last Admin Dose Admin Atorvastatin Calcium (Lipitor) 40 mg DAILY PO 02/07/19 09:00 02/09/19 08:33 Clopidogrel Bisulfate (PLAVix) 75 mg DAILY PO 02/05/19 09:00 02/09/19 08:34 Dextrose (Dextrose 50%) 25 ml ASDIRECTED PRN IV SEE LABEL COMMENTS 02/04/19 14:15 Diatrizoate Meglum/ Diatrizoate Sod (Gastrografin) 10 ml Q30M PO 02/04/19 08:45 02/04/19 09:16 DC 02/04/19 09:15 Digoxin (Lanoxin) 0.125 mg DAILY PO 02/05/19 09:00 02/09/19 08:34 Finasteride (Proscar) 5 mg DAILY PO 02/05/19 09:00 02/09/19 08:33 Glucagon (Glucagon) 1 mg ASDIRECTED PRN SC SEE LABEL COMMENTS 02/04/19 14:15 Glucose (Glucose) 16 GM ASDIRECTED PRN PO SEE LABEL COMMENTS 02/04/19 14:15 Heparin Sodium (Porcine) (Heparin) 5,000 units Q12H SC 02/04/19 21:00 02/09/19 08:33 Home Med (Med Rec Complete!) ASDIRECTED XX 02/04/19 14:15 02/04/19 14:15 DC Indapamide (Lozol) 1.25 mg DAILY PO 02/08/19 09:00 02/09/19 08:34 Insulin Human Lispro (HumaLOG INSULIN) See Protocol Table AC SC 02/05/19 12:00 02/09/19 08:34 Insulin Human Lispro (HumaLOG INSULIN) See Protocol Table Q6H LA 02/04/19 18:00 02/05/19 11:22 DC 02/05/19 06:50 Insulin Human Lispro (HumaLOG INSULIN) See Protocol Table QHS LA 02/04/19 21:00 02/04/19 21:00 DC Insulin Human Lispro ([facility]LOG INSULIN) [facility] 02/05/19 21:00 02/06/19 21:47 Mesalamine (Pentasa) 1,000 mg BID PO 02/07/19 09:00 02/07/19 17:54 DC 02/07/19 09:41 Methylprednisolone (SOLU medrol) 40 mg Q12H IV 02/06/19 09:00 02/09/19 08:35 Metoprolol Succinate (TopROL XL) 100 mg BID PO 02/04/19 21:00 02/09/19 08:33 Metoprolol Tartrate (Lopressor) 100 mg BID PO 02/04/19 21:00 02/04/19 21:00 DC Morphine Sulfate (Morphine Sulfate Inj) 2 mg Q30M PRN IV MODERATE PAIN (PS 5-7) 02/04/19 07:15 02/04/19 14:56 DC 02/04/19 07:27 Morphine Sulfate (Morphine Sulfate Inj) 2 mg Q4HP PRN IV PAIN 02/04/19 14:15 Ondansetron HCl (ZOFRAN INJection) 4 mg Q6HP PRN IV NAUSEA OR VOMITING 02/04/19 14:15 Oxycodone/ Acetaminophen (Percocet 5mg/ 325mg Tablet) 1 tab Q6HP PRN PO MILD/MODERATE PAIN (PS 1-7) 02/06/19 11:45 02/08/19 21:30 Pantoprazole Sodium (Protonix) 40 mg Q24H IV 02/04/19 09:00 02/09/19 08:32 Piperacillin Sod/ Tazobactam Sod 2.25 gm/Dextrose 50 ml @ 100 mls/hr Q6H IV 02/04/19 16:00 02/09/19 10:04 Piperacillin Sod/ Tazobactam Sod 3.375 gm/Dextrose 50 ml @ 50 mls/hr Q6H IV 02/04/19 15:00 02/04/19 15:00 DC Potassium Chloride 10 meq/ IV Miscellaneous Supplies 100 ml @ 100 mls/hr Q1H IV 02/06/19 09:00 02/06/19 10:59 DC 02/06/19 09:55 Potassium Chloride/Sodium Chloride 1,000 ml @ 100 mls/hr Q10H IV 02/04/19 14:42 02/05/19 08:18 DC 02/05/19 00:15 Sodium Chloride 1,000 ml @ 75 mls/hr [id number] IV 02/04/19 14:15 02/04/19 14:44 DC Sodium Chloride 1,000 ml @ 100 mls/hr Q10H IV 02/04/19 07:11 02/04/19 13:25 DC 02/04/19 07:24 Sodium Chloride 1,000 ml @ 150 mls/hr Q6H40M IV 02/04/19 13:30 02/04/19 14:44 DC Sulfasalazine (Azulfidine Entabs) 500 mg QID PO 02/07/19 21:00 02/09/19 08:33 Allergies Coded Allergies: No Known Allergies (Verified , 02/04/19) Objective Physical Examination Examination GENERAL APPEARANCE: Sitting up on a chair, looks very comfortable. SKIN: Warm and moist. HEENT: Normocephalic, atraumatic. [place] palpebral conjunctiva, anicteric sclerae. Lips and mucosa appear moist. NECK: Supple, no thyromegaly. No obvious jugular venous distention. LUNGS: Clear to auscultation bilaterally. No wheezing appreciated. HEART: No chest wall abnormalities. Regular rate and rhythm with no murmurs appreciated. ABDOMEN: Abdomen is slightly rounded, soft, minimally distended, not better than it was prior to the weekend. Nontender on palpation. EXTREMITIES: Extremities have no deformities. No edema identified. Vital Signs Vital Signs Date Time Temp Pulse Resp B/P (MAP) Pulse Ox O2 Delivery O2 Flow Rate FiO2 02/09/19 08:34 63 02/09/19 08:33 151/85 02/09/19 06:00 96.7 16 97 02/04/19 15:00 Room Air I&Os I&O- Last 24 Hours up to 6 AM 02/09/19 06:00 Intake Total 377 ml Output Total 0 ml Balance 377 ml Laboratory Data Labs 24H Laboratory Tests 2 02/08/19 11:20: Bedside Glucose (Misc Panel) 232H 02/08/19 17:18: Bedside Glucose (Misc Panel) 255H 02/08/19 20:36: Bedside Glucose (Misc Panel) 145H 02/09/19 05:14: Immature Granulocyte % (Auto) 0.4, White Blood Count 6.9, Red Blood Count 3.78L, Hemoglobin 10.5L, Hematocrit 32.5L, Mean Corpuscular Volume 86.0, Mean Corpuscular Hemoglobin 27.8, Mean Corpuscular Hemoglobin Concent 32.3, Red Cell Distribution Width 15.6H, Platelet Count 126L, Neutrophils (%) (Auto) 81.4H, Lymphocytes (%) (Auto) 14.0L, Monocytes (%) (Auto) 4.1, Eosinophils (%) (Auto) 0.0, Basophils (%) (Auto) 0.1, Neutrophils # (Auto) 5.6, Lymphocytes # (Auto) 1.0L, Monocytes # (Auto) 0.3, Eosinophils # (Auto) 0.0, Basophils # (Auto) 0.0, Nucleated Red Blood Cells % (auto) 0.0, Anion Gap 7L, Glomerular Filtration Rate > 60.0, Blood Urea Nitrogen 9, Creatinine 0.94, Sodium Level 147H, Potassium Level 3.8, Chloride Level 110H, Carbon Dioxide Level 30, Calcium Level 8.4L, Magnesium Level 1.9 CBC/BMP Laboratory Tests 02/09/19 05:14 Red Blood Count 3.78 L, Mean Corpuscular Volume 86.0, Mean Corpuscular Hemoglobin 27.8, Mean Corpuscular Hemoglobin Concent 32.3, Red Cell Distribution Width 15.6 H, Neutrophils (%) (Auto) 81.4 H, Lymphocytes (%) (Auto) 14.0 L, Monocytes (%) (Auto) 4.1, Eosinophils (%) (Auto) 0.0, Basophils (%) (Auto) 0.1, Neutrophils # (Auto) 5.6, Lymphocytes # (Auto) 1.0 L, Monocytes # (Auto) 0.3, Eosinophils # (Auto) 0.0, Basophils # (Auto) 0.0, Calcium Level 8.4 L Microbiology Microbiology 02/06/19 Gastrointestinal Tract Panel (PCR) - Final, Complete Impression Crohn's disease, long-standing inadequately treated Partial small bowel obstruction pattern looks to be resolved Abnormal CT with matted loops of bowel over the right upper quadrant area which may be the source of obstruction, stricture, fistulization versus malignancy Patient appears improved with steroid therapy. His diet is going to be advanced to a low-residue diet. It does not seem that he will require surgery at this point. I spoke to him about need to be seen and follow up with a education program associate to get adequate treatment for his Crohn's disease. He is a bit concerned if the pain returns if he'll get pain medications. If he is able to tolerate food, he can be discharged home. I suggest given our education program associate to call for recommendation on what medication he can be sent home and for outpatient follow-up with him. No need for surgical follow-up unless patient develops complications from his Crohn's disease like persistent obstruction, recurrent obstruction. Plan / VTE VTE Prophylaxis Ordered?: Yes JORGITO VALLE MD Feb 09, 2019 10:15
--- NOTE | 2019-02-09 11:08 | IPNPDOC ---
Subjective Date Seen The patient was seen on 02/09/19. Subjective Chief Complaint/HPI feeling much better, no further abdominal pain, says abdomen is soft though still has some diarrhea. But says has more stool in it and says at home also normally his stools are always soft and mushy several times a day, No fever or chills, no chest pain ro sob . Objective Physical Examination General Exam: Positive: Alert, Cooperative, No Acute Distress Eye Exam: Positive: PERRLA, Conjunctiva & lids normal, EOMI; Negative: Sclera icteric ENT Exam: Positive: Atraumatic, Mucous membr. moist/pink, Pharynx Normal Neck Exam: Positive: Supple; Negative: JVD, thyromegaly Chest Exam: Positive: Clear to auscultation, Normal air movement Heart Exam: Positive: Rate Normal, Irregular Rhythm, Normal S1, Normal S2; Negative: Gallops, Murmurs, Rubs Telemetry: Positive: Atrial fibrillation Abdomen Exam: Positive: Normal bowel sounds, Soft, Other (no guarding or rigidity present) Extremity Exam: Negative: Clubbing, Cyanosis, Edema Skin Exam: Positive: Nl turgor and temperature; Negative: Breakdown, Lesion Psych Exam: Positive: Memory Intact, Oriented x 3 Assessment /Plan Assessment Patient is an 88-year-old male with past medical history of Systolic CHF with EF of 20 to 25%, ischemic cardiomyopathy, Severe pulmonary hypertension with right heart failure, Afib on Eliquis, HTN, Crohn's disease, HLD, BPH, DM presented to the ER with complaints of upper Abdominal pain for 4 days with 7 to 8 watery stool since last night. CT abdomen showed either an early small bowel obstruction which may be partial versus a small bowel ileus. This is seen in conjunction with matted appearing small bowel loops in the right upper quadrant could not rule out the possibility of a right upper quadrant abscess. The bowel loops in that area are noncontrast opacified or poorly contrast opacified severely limiting evaluation of them. No free fluid is seen in the abdomen, however, small amount of fluid trapped in the small bowel mesentery adjacent to this almost phlegmonous appearing mesentery cannot be ruled out. Patient admitted for Partial SBO / Ileus with the possibility of RUQ abscess. CT enterography showed Partial small bowel obstruction apparently due to a somewhat matted process affecting mid small bowel loops. This is associated with nodular mural thickening and some increased adenopathy compared to the 2010 prior study. Thereis mild ascites but no free air. Possibilities include Crohn's enteropathy as well as malignancy such as adenocarcinoma and/or carcinoid Partial SBO with matted small bowel loops. there is concern for Crohn's entropathy vs malignancy. symptoms have improved and the SBO has resolved. will advance to soft low residue diet. will refer to GI for managment of his crohn's disease. Possible Crohn's disease flare steroids, continue zosyn , continue sulfasalazine will refer to GI Hypokalemia replaced Hypomagnesemia replaced. Diabetes will hold metformin and januvia on lispro sliding scale FS AC ans HS Chronic Afib rate controlled continue metoprolol and digoxin. restart eliquis Systolic CHF with severe pulmonary hypertension and right heart failure due to left heart failure. due to ischemic cardimyopathy continue indapamide, lisinopril BPH continue finasteride Plan/VTE VTE Prophylaxis Ordered?: Yes VS, I&O, 24H, Fishbone Vital Signs/I&O Vital Signs Date Time Temp Pulse Resp B/P (MAP) Pulse Ox O2 Delivery O2 Flow Rate FiO2 02/09/19 08:34 63 02/09/19 08:33 151/85 02/09/19 06:00 96.7 16 97 02/04/19 15:00 Room Air I&O- Last 24 Hours up to 6 AM 02/09/19 06:00 Intake Total 377 ml Output Total 0 ml Balance 377 ml Laboratory Data 24H LABS Laboratory Tests 2 02/08/19 11:20: Bedside Glucose (Misc Panel) 232H 02/08/19 17:18: Bedside Glucose (Misc Panel) 255H 02/08/19 20:36: Bedside Glucose (Misc Panel) 145H 02/09/19 05:14: Immature Granulocyte % (Auto) 0.4, White Blood Count 6.9, Red Blood Count 3.78L, Hemoglobin 10.5L, Hematocrit 32.5L, Mean Corpuscular Volume 86.0, Mean Corpuscular Hemoglobin 27.8, Mean Corpuscular Hemoglobin Concent 32.3, Red Cell Distribution Width 15.6H, Platelet Count 126L, Neutrophils (%) (Auto) 81.4H, Lymphocytes (%) (Auto) 14.0L, Monocytes (%) (Auto) 4.1, Eosinophils (%) (Auto) 0.0, Basophils (%) (Auto) 0.1, Neutrophils # (Auto) 5.6, Lymphocytes # (Auto) 1.0L, Monocytes # (Auto) 0.3, Eosinophils # (Auto) 0.0, Basophils # (Auto) 0.0, Nucleated Red Blood Cells % (auto) 0.0, Anion Gap 7L, Glomerular Filtration Rate > 60.0, Blood Urea Nitrogen 9, Creatinine 0.94, Sodium Level 147H, Potassium Level 3.8, Chloride Level 110H, Carbon Dioxide Level 30, Calcium Level 8.4L, Magnesium Level 1.9 CBC/BMP Laboratory Tests 02/09/19 05:14 Red Blood Count 3.78 L, Mean Corpuscular Volume 86.0, Mean Corpuscular Hemoglobin 27.8, Mean Corpuscular Hemoglobin Concent 32.3, Red Cell Distribution Width 15.6 H, Neutrophils (%) (Auto) 81.4 H, Lymphocytes (%) (Auto) 14.0 L, Monocytes (%) (Auto) 4.1, Eosinophils (%) (Auto) 0.0, Basophils (%) (Auto) 0.1, Neutrophils # (Auto) 5.6, Lymphocytes # (Auto) 1.0 L, Monocytes # (Auto) 0.3, Eosinophils # (Auto) 0.0, Basophils # (Auto) 0.0, Calcium Level 8.4 L Microbiology Microbiology 02/06/19 Gastrointestinal Tract Panel (PCR) - Final, Complete TINA DUKE MD Feb 09, 2019 11:08
[2019-02-09] MEDS ORDERED: NS 1,000 ML IV SCH (21:48)
--- NOTE | 2019-02-09 21:58 | IPNPDOC ---
Text Note Date of Service The patient was seen on 02/09/19. NOTE TOLL COLLECTOR called for evaluation of AMS at approximately 930PM for suspected stroke per d/w the patient's RN he was talking earlier on during the evening when she went to check on him he had difficulties talking PE BP 230/131 HR 136-160s RR 26 / O2 97% on RA GEN: currently the patient is no speaking but alert and attempts to follow commands HEENT: EOMI, unable to raise eye brows or smile CVS: HR tachycardic and irregularly irregular NEURO: able to lift left leg and left arm of of bed / unable to lift right arm and right leg of off bed #suspected stroke Plan: CT head stat/ transfer to ICU / rectal ASA / NPO w IVF pending swallow mariana / f/u lipid panel / permissive HTN for 24H / strict glycemic control w goal btw 140 -180 / rectal ASA #afib w RVR has EF of 20% Plan: per d/w will give labetalol 5mg IV PRN LATE ENTRY Per d/w the patient is a candidate for tPN per d/w nursing staff will need to transfer patient to a stroke center cc / rapid response time approx 90 min VS,Maria Ce, I+O VS, [place], I+O Laboratory Tests 02/09/19 05:14 Red Blood Count 3.78 L, Mean Corpuscular Volume 86.0, Mean Corpuscular Hemoglobin 27.8, Mean Corpuscular Hemoglobin Concent 32.3, Red Cell Distribution Width 15.6 H, Neutrophils (%) (Auto) 81.4 H, Lymphocytes (%) (Auto) 14.0 L, Monocytes (%) (Auto) 4.1, Eosinophils (%) (Auto) 0.0, Basophils (%) (Auto) 0.1, Neutrophils # (Auto) 5.6, Lymphocytes # (Auto) 1.0 L, Monocytes # (Auto) 0.3, Eosinophils # (Auto) 0.0, Basophils # (Auto) 0.0, Calcium Level 8.4 L Vital Signs Date Time Temp Pulse Resp B/P (MAP) Pulse Ox O2 Delivery O2 Flow Rate FiO2 02/09/19 14:00 97.4 59 18 160/79 (106) 99 02/04/19 15:00 Room Air I&O- Last 24 Hours up to 6 AM 02/09/19 06:00 Intake Total 377 ml Output Total 0 ml Balance 377 ml MELISSA RICHEY MD Feb 09, 2019 21:58
[2019-02-09] MEDS ORDERED: ASPIRIN 300 MG SUPP PR ONE (22:00)
--- NOTE | 2019-02-09 22:24 | REPVR ---
EXAM: CT Head Without Contrast EXAM DATE/TIME: 02/09/2019 9:50 PM CLINICAL HISTORY: 88 years old, male; Other: Possible stroke TECHNIQUE: Imaging protocol: Computed tomography images of the head without contrast. Radiation optimization: All CT scans at this facility use at least one of these dose optimization techniques: automated exposure control; mA and/or kV adjustment per patient size (includes targeted exams where dose is matched to clinical indication); or iterative reconstruction. COMPARISON: MRI-Brain without Contrast 06/19/2017 10:33 AM FINDINGS: Brain: There is parenchymal volume loss. White matter changes are demonstrated in the subcortical, centrum semiovale and periventricular white matter consistent with small vessel white matter angiopathic gliosis. Ventricles: The degree of ventricular dilatation is normal for age. No pathologic enlargement demonstrated. Bones/joints: Unremarkable. No acute fracture. Sinuses: Visualized sinuses are unremarkable. No fluid levels. Mastoid air cells: Visualized mastoid air cells are well aerated. No mastoid effusion. Soft tissues: Unremarkable. Vasculature: Atherosclerotic calcifications in the intracranial carotid arteries and vertebral basilar system. IMPRESSION: There is parenchymal volume loss. White matter changes are demonstrated in the subcortical, centrum semiovale and periventricular white matter consistent with small vessel white matter angiopathic gliosis. The [place] Stroke Stroke Protocol Score (ASPECT) is 10. Electronically signed by: Juan Carlos Dumont On 02/09/2019 22:23:34 PM
[2019-02-09] MEDS ORDERED: DILUENT IV SCH (22:30)
[2019-02-09] MEDS ORDERED: ESMOLOL HCL IV SCH (22:30)
[2019-02-09 22:34] LABS: INR 1.13; PROTHROMBIN TIME 14.2 SECONDS (11.8-14.0)
[2019-02-09 22:35] LABS: PARTIAL THROMBOPLASTIN TIME 31.4 SECONDS (25.0-38.4)
[2019-02-09] MEDS ORDERED: diltiaZEM 125 MG in NS 100 ML IV SCH (23:00)
[2019-02-09] MEDS ORDERED: ALTEPLASE 100MG INJ (J2997) IV ONE (23:00)
[2019-02-09 23:03] LABS: CHOLESTEROL RISK RATIO 1.898 (<5); THYROID STIMULATING HORMONE 3.04 uIU/ML (0.358-3.740)
[2019-02-09] MEDS ORDERED: LABETALOL HCL 100 MG/20 ML VIAL IV PRN (23:15)
--- NOTE | 2019-02-09 23:56 | DS.PDOC ---
Discharge Summary General Date of Admission Feb 04, 2019 at 14:11 Date of Discharge Feb 09 2019 Attending Physician: TINA DUKE MD Discharge Summary PROCEDURES PERFORMED DURING STAY: [None]. ADMITTING DIAGNOSES: 1. Partial SBO/ Ileus with possible RUQ abscess 2. Hypokalemia 3. Elevated lipase DISCHARGE DIAGNOSES: 1. Acute CVA 2. Partial SBO possibly 2/2 Crohn's entropathy vs malignancy has resolved 3. Possible Crohn's disease flare COMPLICATIONS/CHIEF COMPLAINT: Crohn's Disease,Small Bowel Obstruction. HISTORY OF PRESENT ILLNESS: . is an 88-year-old male w a PMH of Chronic Systolic CHF (EF of 20 to 25%/ ischemic cardiomyopathy, severe pulmonary hypertension with cor pulmonale, Afib on Eliquis, HTN, Crohn's disease, HLD, BPH, DM who presented with complaints of gradually worsening upper abdominal pain associated with 7 episodes of loose watery stools. Denied having nausea or vomiting. CT abdomen showed is consistent with a partial versus a small bowel obstruction; though suspicion that he may have a right upper quadrant abscess as well. HOSPITAL COURSE: . He was admitted to the medical floor management for management of partial small bowel obstruction There was suspicion that the partial small bowel structure may be due to Crohn's acropathy versus a possible malignancy. The small bowel structure resolved shortly after admission. His course was complicated by electrolyte imbalances which were managed with electrolyte repletion. On the evening of February 10 in between 8:30 9:30 PM his mental status changed. He had expressive aphasia and right hemiparesis. His blood pressure was 230/131 and and he was in A. fib with RVR. CT of the head was negative for any acute process, but per discussion with the radiologist on-call an MRI may capture stroke findings more accurately. Per discussion with the neurologist motion picture projectionist apprentice, Dr. Meyers we administered tPN. Per discussion with Dr. Spring we ordered labetalol when necessary for rate control. It was felt that the patient would be best served at a stroke center with a neuro ICU. He was transferred to [facility] under Dr. Worrell. DISCHARGE MEDICATIONS: Please see below. ALLERGIES: Please see below. PHYSICAL EXAMINATION ON DISCHARGE: VITAL SIGNS: Please see below. GENERAL: Not in apparent distress HEENT: Has nasal labial fold flattening, not raising his eyebrows, not smiling, extra ocular movements are intact CARDIOVASCULAR EXAMINATION: Heart rate is irregularly irregular and tachycardic RESPIRATORY EXAMINATION: Clear to auscultation bilaterally on room air EXTREMITIES: Able to raise left arm and left leg off of the bed and hold them for 10 seconds. Not following instructions with regards to keeping pop facing up off the bed, unable to raise right arm and right leg off the bed NEUROLOGICAL EXAMINATION: Has difficulties finding words, unable to express himself LABORATORY DATA: Please see below. IMAGING: CT abdomen showed either an early small bowel obstruction which may be partial versus a small bowel ileus. CT enterography showed Partial small bowel obstruction apparently due to a so mewhat matted process affecting mid small bowel loops. This is associated with nodular mural thickening and some increased adenopathy compared to the 2010 prior study. Thereis mild ascites but no free air. Possibilities include Crohn's enteropathy as well as malignancy such as adenocarcinoma and/or carcinoid CT of the head was negative for any acute process PROGNOSIS: ACTIVITY bed rest DIET: NPO DISCHARGE PLAN: transfer to [facility] [place] CONDITION: guarded TIME SPENT ON DISCHARGE: Greater than 120 minutes in total was spent during the rapid response, calling Neurologist, Percussion Tuner and coordinating the transfer to [facility]. Vital Signs/I&Os Vital Signs Date Time Temp Pulse Resp B/P (MAP) Pulse Ox O2 Delivery O2 Flow Rate FiO2 02/09/19 14:00 97.4 59 18 160/79 (106) 99 02/04/19 15:00 Room Air I&O- Last 24 Hours up to 6 AM 02/09/19 06:00 Intake Total 377 ml Output Total 0 ml Balance 377 ml Laboratory Data Labs 24H Laboratory Tests 2 02/09/19 05:14: Immature Granulocyte % (Auto) 0.4, White Blood Count 6.9, Red Blood Count 3.78L, Hemoglobin 10.5L, Hematocrit 32.5L, Mean Corpuscular Volume 86.0, Mean Corpuscular Hemoglobin 27.8, Mean Corpuscular Hemoglobin Concent 32.3, Red Cell Distribution Width 15.6H, Platelet Count 126L, Neutrophils (%) (Auto) 81.4H, Lymphocytes (%) (Auto) 14.0L, Monocytes (%) (Auto) 4.1, Eosinophils (%) (Auto) 0.0, Basophils (%) (Auto) 0.1, Neutrophils # (Auto) 5.6, Lymphocytes # (Auto) 1.0L, Monocytes # (Auto) 0.3, Eosinophils # (Auto) 0.0, Basophils # (Auto) 0.0, Nucleated Red Blood Cells % (auto) 0.0, Anion Gap 7L, Glomerular Filtration Rate > 60.0, Blood Urea Nitrogen 9, Creatinine 0.94, Sodium Level 147H, Potassium Level 3.8, Chloride Level 110H, Carbon Dioxide Level 30, Calcium Level 8.4L, Magnesium Level 1.9 02/09/19 11:36: Bedside Glucose (Misc Panel) 328H 02/09/19 16:54: Bedside Glucose (Misc Panel) 86 02/09/19 21:19: Bedside Glucose (Misc Panel) 185H 02/09/19 22:16: Triglycerides Level 100, LDL Cholesterol 33, Total Cholesterol 112, Non-HDL Cholesterol (LDL + VLDL) 53, Total HDL Cholesterol 59, Cholesterol/HDL Ratio 1.898, Thyroid Stimulating Hormone (TSH) 3.040 02/09/19 22:17: Prothrombin Time 14.2H, Prothromb Time International Ratio 1.13, Activated Partial Thromboplast Time 31.4 CBC/BMP Laboratory Tests 02/09/19 05:14 Red Blood Count 3.78 L, Mean Corpuscular Volume 86.0, Mean Corpuscular Hemoglobin 27.8, Mean Corpuscular Hemoglobin Concent 32.3, Red Cell Distribution Width 15.6 H, Neutrophils (%) (Auto) 81.4 H, Lymphocytes (%) (Auto) 14.0 L, Monocytes (%) (Auto) 4.1, Eosinophils (%) (Auto) 0.0, Basophils (%) (Auto) 0.1, Neutrophils # (Auto) 5.6, Lymphocytes # (Auto) 1.0 L, Monocytes # (Auto) 0.3, Eosinophils # (Auto) 0.0, Basophils # (Auto) 0.0, Calcium Level 8.4 L FSBS Laboratory Tests Test 02/09/19 11:36 02/09/19 16:54 02/09/19 21:19 Range/Units Bedside Glucose (Misc Panel) 328 86 185 83-110 MG/DL Microbiology Microbiology 02/06/19 Gastrointestinal Tract Panel (PCR) - Final, Complete Discharge Medications No Active Prescriptions or Reported Meds Allergies Coded Allergies: No Known Allergies (Verified , 02/04/19) MELISSA RICHEY MD Feb 09, 2019 23:56
[2019-02-10] MEDS ORDERED: DILUENT IV ONE ×2
[2019-02-10] MEDS ORDERED: ALTEPLASE RECOMBINANT IV ONE ×2
== END 2019-02-10 00:30 | disposition short-term general hospital (02) | DRG 385 ==
LOC: M ED 06:45 → M ED INP 14:11 → M MSPAV 16:18 → M ICU 02-09 21:57
PROVIDERS: ADMIT Internal Medicine Nephrology; ATTEND Internal Medicine
DX: K50.012 Crohn's disease of small intestine with intestinal obstruction (principal); I63.9 Cerebral infarction, unspecified; I50.22 Chronic systolic (congestive) heart failure; K56.7 Ileus, unspecified; I25.5 Ischemic cardiomyopathy; I27.20 Pulmonary hypertension, unspecified; I27.81 Cor pulmonale (chronic); E87.6 Hypokalemia; I48.2 Chronic atrial fibrillation; Z79.01 Long term (current) use of anticoagulants; N40.0 Benign prostatic hyperplasia without lower urinary tract symptoms; E11.9 Type 2 diabetes mellitus without complications; Z79.899 Other long term (current) drug therapy; E83.42 Hypomagnesemia